=== PATIENT | male | born 1945 | race Caucasian/White ===

== ENCOUNTER 2018-07-24 07:51 | Outpatient (CLI) | payer MEDICARE ==
[2018-07-24] MEDS ORDERED: Gadobenate Dimeglumine 529 MG/1 ML (20ML VIAL) ONE (09:12)
== END 2018-07-24 07:52 | disposition home or self-care (01) ==
LOC: BICMRI 07:51
PROVIDERS: ATTEND Neurological Surgery
DX: M47.22 Other spondylosis with radiculopathy, cervical region (principal); M50.11 Cervical disc disorder with radiculopathy, high cervical region; M89.38 Hypertrophy of bone, other site; Z98.1 Arthrodesis status
CPT/HCPCS: 72156; 82565

== ENCOUNTER 2018-07-24 12:19 | Outpatient (CLI) | payer MEDICARE ==
--- NOTE | 2018-07-24 14:40 | CT ---
NONCONTRAST CT CERVICAL SPINE: 07/24/2018 HISTORY: Neck pain. FINDINGS: There are post surgical changes related to anterior cervical fusion with anterior plate and screws tr ansfixing the C4-C5 and C5-C6 levels. No hardware complication is seen. Intradiskal prostheses are noted at these levels. Multilevel degenerative changes are seen in the cervical spine. No fracture or subluxation is seen. There are prominent anterior osteophytes at the C6-C7 and C7-T1 levels and to a lesser extent at the C3-C4 level. There is posterior osteophyte formation and facet degenerative changes at multiple lev els. At the C2-C3 level, there is moderate to severe left-sided neural foraminal narrowing due to uncinate process hypertrophy and prominent left-sided facet hypertrophic changes. At the C3-C4 level, there is posterior osteophyte formation, uncinate process hypertrophy, and facet degenerative changes, resulting in moderate to severe bilateral neural foraminal narrowing. Posterior to the C4-C5 level, there is prominent osteophyte formation, with the osteophyte formation extending inferiorly at the right aspect of the central spinal canal. This does result in mass effec t on the spinal cord, resulting in flattening of the right anterolateral aspect of the spinal cord. There is also moderate bilateral neural foraminal narrowing. C5-C6: There is posterior osteophyte formation resulting in moderate to severe narrowing of the righ t neural foramen. There is also narrowing of the central spinal canal and mass effect on the anterio r aspect of the spinal cord. There is moderate to severe right-sided neural foraminal narrowing due to bony encroachment. The prominent posterior osteophyte formation, greatest to the right of midline , may also affect the exiting nerve root at this level. The prevertebral soft tissues are within normal limits. The mastoid air cells are clear. The visualized lung apices are clear. IMPRESSION: Multilevel degenerative changes of the cervical spine with prominent posterior osteophyte formation p resent at the level of post surgical changes, as described above. The degree of narrowing is better assessed on magnetic resonance imaging examination on 07/24/2018. There are moderate degrees of neur al foraminal narrowing at multiple levels, also related to bony encroachment, as described above. POS: ANGELA
== END 2018-07-24 12:20 | disposition home or self-care (01) ==
LOC: CT 12:19
PROVIDERS: ATTEND Neurological Surgery
DX: M54.2 Cervicalgia (principal); M47.892 Other spondylosis, cervical region; M99.81 Other biomechanical lesions of cervical region; M25.78 Osteophyte, vertebrae; Z98.890 Other specified postprocedural states
CPT/HCPCS: 72125; 72156; 82565; A9579

== ENCOUNTER 2018-08-20 06:27 | Day surgery (SDC) | payer MEDICARE ==
[2018-08-14 12:25] VITALS: BMI 39.3
--- NOTE | 2018-08-20 00:03 | HP ---
HISTORY OF PRESENT ILLNESS: Mr. Hammer is a pleasant 73-year-old man addressed with previous [facility] es for both neck and low back issues. He returns now with a significant left-sided C4 and partial C5 radicular pattern of pain with a new MRI and CT scan showing multiple levels of both central and sev ere foraminal stenosis particularly from C4 through C6. He has not treated this recently, but in the past has treated with injections, which have helped him, but then it started to taper. His pain is significant to the point where he would like to move forward with surgery if possible. He does drop items with the left hand. PAST MEDICAL HISTORY: Arrhythmia, kidney stones, and gastroesophageal reflux disease. CURRENT MEDICATIONS: Atenolol, Advil, AndroGel, aspirin, fenofibrate, losartan, omeprazole, erythrom ycin. ALLERGIES: No known drug allergies. PHYSICAL EXAMINATION: GENERAL: Patient is alert and oriented x3. Gait is normal. EXTREMITIES: Upper extremity motor exam is normal as well in the bilateral upper extremities. He do es have restricted range of motion to the left in the cervical spine. ASSESSMENT: Cervical radiculopathy. PLAN: Dr. Jean-Baptiste met with the patient, reviewed imaging, and advocated for C4 through C6 posterior ce rvical decompression. He explained to the patient the risks, benefits, and alternatives to the proce dure. The patient expressed understanding and would like to move forward with surgery as discussed. I do believe the patient is mentally competent and capable of making medical decisions for himself. We will move forward with surgery as planned. Aydin Garcia PA-C dictating for Dr. Jean-Baptiste.
[2018-08-20 07:35] LABS: #Basophils 0.1 thou/uL (0.0-0.2); #Eosinphils 0.3 thou/uL (0.0-0.7); #Lymphocytes 1.4 thou/uL (1.20-3.40); #Monocytes 0.6 thou/uL (0.11-0.59); #Neutrophils 3.3 thou/uL (1.40-6.50); %Basophils 1.3 % (0.0-1.0); %Lymphocytes 23.9 % (21.0-51.0); %Monocytes 11.3 % (0.0-10.0); %Neutrophils 58.6 % (42.0-75.0); Hemoglobin 17.1 g/dL (14.0-18.0); Mean Corpuscular HGB CONC 33.6 g/dL (32.0-36.0); Mean Corpuscular Hemoglobin 31.7 pg (27.0-31.0); Mean Corpuscular Volume 94.3 fL (78.0-98.0); Mean Platelet Volume 8.7 fL (7.4-10.4); Platelet Count 204 thou/uL (130-400); RBC Distribution Width 13.3 % (11.5-14.5); White Blood Cell (WBC) Count 5.7 thou/uL (4.8-10.8)
[2018-08-20] MEDS ORDERED: CEFAZOLIN/Water 2 GM/20 ML SYRINGE ONE ×2 (07:38→12:52)
[2018-08-20] MEDS ORDERED: Thrombin 5000 UNITS/5 ML VIAL ONE (09:11)
[2018-08-20] MEDS ORDERED: Bupivacaine HCl 0.5%/Epinephrine 1:200,000/PF 30 ml Vial ONE (09:11)
[2018-08-20] MEDS ORDERED: Tamsulosin HCl 0.4 MG CAP ONE (11:24)
[2018-08-20] MEDS ORDERED: HYDROcodone/Acetaminophen 5/325 mg Tablet ONE (12:52)
[2018-08-20] MEDS ORDERED: Dexamethasone 20 MG/5 ML VIAL ONE (16:29)
[2018-08-20] MEDS ORDERED: Ondansetron HCl/PF 4 MG/2 ML Vial ONE (16:29)
[2018-08-20] MEDS ORDERED: PHENYLEPHRINE-NS 100 MCG/ML 10 ML SYRINGE ONE (16:29)
[2018-08-20] MEDS ORDERED: Glycopyrrolate 0.2 MG/ML 5 ML SYRINGE ONE (16:29)
[2018-08-20] MEDS ORDERED: PROPOFOL 200 MG/20 ML VIAL ONE (16:29)
[2018-08-20] MEDS ORDERED: ePHEDrine/0.9% NaCl/PF SYRINGE 50 mg/10 ml ONE (16:29)
--- NOTE | 2018-08-21 09:25 | OP ---
DATE OF PROCEDURE: 08/20/2018 SURGEON: Harmeet Jean-Baptiste M.D. COLD PRESS OPERATOR: Aydin Garcia PA-C. INDICATION: Prevent neurologic decline. DIAGNOSIS: Cervical spondylytic stenosis with myelopathy. PROCEDURE: Posterior cervical decompression C4-C6. ANESTHESIA: General. TECHNIQUE: The patient was brought into the operating room and placed under anesthesia. He was flip ped from a supine to a prone position on the operating room table. A linear incision was planned ove r the posterior cervical elements spanning C4-C6. After prepping and draping and after an appropriat e operative pause, the incision was created. The soft tissues were swept away from midline. Self-re taining retractors were placed in the wound for optimal exposure. After confirming the appropriate l evel with C-arm fluoroscopy, an Adson rongeur as well as 2 and 1 mm Kerrisons were used to perform a laminectomy spanning C4-C6. After decompressing these segments, the wound was irrigated. Hemostasis was maintained throughout. The wound was then closed in anatomic layers and a pressure dressing was applied. There were no known procedural complications.
--- NOTE | 2018-08-21 09:35 | EKG ---
Test Reason : PREOP Blood Pressure : / mmHG Vent. Rate : 073 BPM Atrial Rate : 073 BPM P-R Int : 182 ms QRS Dur : 104 ms QT Int : 362 ms P-R-T Axes : 074 025 088 degrees QTc Int : 398 ms Normal sinus rhythm Normal ECG When compared with ECG of 19-FEB-2017 12:55, No significant change was found Confirmed by EKTA HOGUE ([id number]) on 08/21/2018 9:34:56 AM Referred By: Ivette MULLINS Confirmed By:EKTA HOGUE
== END 2018-08-20 13:50 | disposition home or self-care (01) ==
LOC: SDC 06:27
PROVIDERS: ATTEND Neurological Surgery
PROC: 00NW0ZZ Release Cervical Spinal Cord, Open Approach (ICD-10-PCS; principal; 2018-08-20)
DX: M47.12 Other spondylosis with myelopathy, cervical region (principal); M47.22 Other spondylosis with radiculopathy, cervical region; M48.02 Spinal stenosis, cervical region; I12.9 Hypertensive chronic kidney disease with stage 1 through stage 4 chronic kidney disease, or unspecified chronic kidney disease; E11.22 Type 2 diabetes mellitus with diabetic chronic kidney disease; N18.2 Chronic kidney disease, stage 2 (mild); K21.9 Gastro-esophageal reflux disease without esophagitis; G47.33 Obstructive sleep apnea (adult) (pediatric); N40.0 Benign prostatic hyperplasia without lower urinary tract symptoms; N52.9 Male erectile dysfunction, unspecified; Z79.82 Long term (current) use of aspirin; Z79.84 Long term (current) use of oral hypoglycemic drugs; Z79.899 Other long term (current) drug therapy
CPT/HCPCS: 76001; 85025; 93005; 93010; J0670; J1100; J2405; J2704

== ENCOUNTER 2018-09-16 02:07 | Inpatient (IN) | payer MEDICARE ==
[2018-09-16 03:41] LABS: Troponin I 1.065 ng/mL (< 0.028)
[2018-09-16 04:36] VITALS: BMI 38.0
[2018-09-16] MEDS ORDERED: Dextrose 5% in Water 1,000 ML IV PRN (04:38)
[2018-09-16] MEDS ORDERED: HYDROcodone/Acetaminophen 5/325 mg Tablet PO PRN (04:38)
[2018-09-16] MEDS ORDERED: HumaLOG 300 UNITS/3 ML VIAL SC PRN ×2 (04:38)
[2018-09-16] MEDS ORDERED: Bisacodyl 5 MG TAB PO PRN (04:38)
[2018-09-16] MEDS ORDERED: Senokot S 8.6-50 MG TAB PO PRN (04:38)
[2018-09-16] MEDS ORDERED: Dextrose 50% Abboject 50 ML SYRINGE SLOW IVP PRN (04:38)
[2018-09-16] MEDS ORDERED: Ondansetron PF 4 MG/2 ML Vial IVP PRN (04:38)
[2018-09-16] MEDS ORDERED: Nitroglycerin 0.4 MG TAB (25 Tab Bottle) SL PRN (04:42)
[2018-09-16] MEDS ORDERED: cloNIDine 0.1 MG TAB PO PRN (04:42)
[2018-09-16] MEDS ORDERED: Acetaminophen 500 MG TAB PO PRN (04:42)
[2018-09-16] MEDS ORDERED: Diabetic Tussin 200 MG/10 ML UDCUP PO PRN (04:42)
[2018-09-16] MEDS ORDERED: Benzonatate 100 MG CAP PO PRN (04:42)
[2018-09-16] MEDS ORDERED: hydrALAZINE 20 MG/ML VIAL SLOW IVP PRN (04:42)
[2018-09-16] MEDS ORDERED: Sodium Chloride 0.65% Nasal 44 ML BOT EA NARE PRN (04:42)
[2018-09-16] MEDS ORDERED: Polyethylene Glycol 3350 17 GM Packet PO PRN (05:49)
--- NOTE | 2018-09-16 06:10 | HP ---
DATE OF ADMISSION: 09/16/2018 CHIEF COMPLAINT: Shortness of breath. PRIMARY CARE PHYSICIAN: Joao Hicks M.D. in [place]. HISTORY OF PRESENTING ILLNESS: Mr. Hammer is a very pleasant 73-year-old male with past medical hist ory of atrial fibrillation, status post ablation multiple years ago as well as history of dyslipidemi a, diabetes and hypertension, who presented to [place] emergency room with the above-mentioned c omplaint. History is mainly obtained by the patient himself and supplemented by his present in the room. According to Mr. Hammer, he has been feeling poorly for the last few days. He has been having some s hortness of breath and easy fatigue for the last 2 or 3 days. He recently had a cervical laminectomy about 2 or 3 weeks ago by neurosurgeon, Dr. Jean-Baptiste. He was discharged the very next day and has been very active and working with the rehabilitation. The date of procedure was 08/20/2018. He, however , did notice some right-sided leg pain, which he attributes to his chronic sciatica versus bursitis. He was sitting in the bathtub today to help relieve this right leg pain when his tried to get hi m out and he passed out. He was approximately passed out for 1 minute and the called the EMS an d by that time, he was coming around with some babbling speech. He was found to be hypoxic per the EMS and was brought into the ER in [place] on nonrebreather m ask. At that time, he was 93% saturation and blood pressure 107/82. His initial workup included jonny st x-ray and 12-lead EKG. These were rather unimpressive. He was found to have elevated D-dimer mor e than 4, so he underwent a CT angio. The formal report is pending at this time, but according to th e ER physician, it was consistent with saddle pulmonary embolism. He was transferred to our emergenc y room where he was continued on nonrebreather for persistent hypoxia. He was difficult to wean off the nonrebreather and is now being admitted to CCU for the saddle PE and acute hypoxic respiratory fa ilure, likely secondary to the PE. PAST MEDICAL HISTORY: 1. Cardiac arrhythmia, status post ablation in [place] times at least twice. At some point of time, he was on Xarelto, but it was stopped after successful ablation multiple years ago. He denies any re occurrence. 2. History of kidney stone. 3. GERD. 4. Diabetes mellitus type 2. 5. Hypertension. 6. Dyslipidemia. PAST SURGICAL HISTORY: 1. History of cardiac ablation. 2. Right foot surgery. 3. Back surgery x3. 4. Left thumb surgery. 5. Cataract removal. 6. Cervical spinal fusion, 08/2018. 7. Tonsillectomy. PSYCHIATRIC HISTORY: No anxiety, no depression. SOCIAL HISTORY: He drinks socially twice a month. No history of drug, tobacco or alcohol abuse. FAMILY HISTORY: No significant family history of bleeding or clotting disorder. Both of his parents had stroke. His mother is still alive and healthy in her 90s. ALLERGIES: No known medication allergies. CURRENT MEDICATIONS: Atenolol 50 mg daily, losartan 100 mg daily, fenofibric acid 145 mg daily, Dexi lant 60 mg daily, metformin 500 b.i.d., glimepiride 4 mg daily, Lyrica 75 b.i.d., AndroGel 50 mg once a day, aspirin 81 mg daily, [place] p.r.n. CODE STATUS: Full code. Discussed with the patient. REVIEW OF SYSTEMS: A 12-point review of systems was done. It is negative except for those mentioned in the history and physical. LABORATORY DATA: CBC is unremarkable. D-dimer elevated to more than 4. Serum chemistries show chlo ride of 108, bicarbonate 18, BUN 31, creatinine 1.69 with a baseline creatinine of normal. His CK-MB is elevated to 11 and troponin initially 0.042 with repeat troponin of 1.065. BNP normal at 79. IMAGING: CT scan of the brain by my review is negative for any bleeding, mass or acute process. Jonny st x-ray by my review has no evidence to suggest pleural effusion, edema or infiltrate. CT angio per report shows saddle PE. A 12-lead EKG by my review shows normal sinus rhythm at 90 beats per minute with inverted T waves in lead V2 and lead third. PHYSICAL EXAMINATION: VITAL SIGNS: Most recent vital signs, temperature 98.6, pulse 86, respirations 17, satting 100% on 1 5 liters nonrebreather, blood pressure 117/81. GENERAL: No acute distress, awake, alert, oriented x3. No accessory muscle use. Able to converse i n full sentences, on the nonrebreather. HEENT: Mucous membrane is moist and pink. No oropharyngeal exudate or erythema. Head is normocepha lic, atraumatic. Pupils are equal and reactive to light and accommodation. Extraocular movements in tact. NECK: Supple without any lymphadenopathy, JVD or bruit. CHEST: Clear to auscultation with few bibasilar crackles. No wheezing. CARDIOVASCULAR: Rate and rhythm is regular without any murmur, rubs or gallops. ABDOMEN: Soft, nontender, nondistended with positive bowel sounds. EXTREMITIES: Free of any cyanosis, clubbing or edema. NEUROLOGIC: Nonfocal. SKIN: Free of any rashes or bruises. Feel warm and dry to touch. PSYCHIATRIC: Normal affect. IMPRESSION AND PLAN: 1. Syncope. This is secondary to pulmonary embolism. We will obtain a transthoracic echocardiogram as his cardiac enzymes are also elevated. No electrolyte imbalances. We will check orthostatics to rule out alternative causes as well. 2. Acute hypoxic respiratory failure. This is secondary to saddle pulmonary embolism. Continue non rebreather for now and wean as tolerated. Symptomatic and supportive care. We will request consulta tion with Pulmonary Medicine in the morning and get a transthoracic echocardiogram to rule out right ventricular strain. 3. Saddle pulmonary embolism. He has received first dose of Lovenox at 1 mg/kg in the ER. We will continue the same at b.i.d. dosing. The patient reports that he has been on Xarelto many years ago f or his atrial fibrillation and he would be a good candidate for newer oral anticoagulants for dischar ge. 4. Elevated troponin, likely demand ischemia from the pulmonary embolism. We will get a transthorac ic echocardiogram and continue the b.i.d. Lovenox dosing and restart his baby aspirin. Echo has been ordered as above. 5. History of hypertension, currently well controlled. We will monitor and use p.r.n. antihypertens denita. 6. Dyslipidemia. 7. History of diabetes mellitus. We will put him on insulin sliding scale for now with frequent Acc u-Cheks. 8. Acute renal insufficiency. We will hold his GONZALES inhibitor and diuretics for now and avoid any ne phrotoxic medications. 9. Code status: Full code. Discussed with the patient. 10. Add deep venous thrombosis and gastrointestinal prophylaxis and p.r.n. medication orders. DISPOSITION: Mr. Hammer is currently being admitted to the hospital for saddle pulmonary embolism. Estimated length of stay at this time is at least 2-3 midnights. Further management will depend upon his clinical course.
[2018-09-16 06:19] LABS: Troponin I 1.221 ng/mL (< 0.028)
[2018-09-16] MEDS ORDERED: Glimepiride 4 MG TAB PO SCH (09:00)
[2018-09-16] MEDS ORDERED: Testosterone 1% 5 GM PK TOP SCH (09:00)
[2018-09-16] MEDS ORDERED: Enoxaparin Sodium 30 MG/0.3 ML SYRINGE SC SCH (09:00)
[2018-09-16] MEDS ORDERED: Enoxaparin Sodium 100 MG/ML SYRINGE SC SCH (09:00)
[2018-09-16] MEDS: Cyanocobalamin (Vitamin B-12) 1,000 MCG TAB PO SCH (09:39)
[2018-09-16] MEDS: Multivitamin W/ Minerals 1 TAB PO SCH (09:39)
[2018-09-16] MEDS: Aspirin 81 mg Enteric Coated Tablet PO SCH (09:39)
[2018-09-16] MEDS: Fenofibrate Nanocrystallized 145 MG TAB PO SCH (09:40)
--- NOTE | 2018-09-16 10:03 | ULT ---
BILATERAL LOWER EXTREMITY VENOUS DOPPLER: Date: 09/16/18 HISTORY: Pulmonary embolism. COMPARISON: Doppler exam from 2017. FINDINGS: Real-time Beckett scale and color Doppler with spectral analysis of the bilateral lower extremity venous system was performed. Common femoral, femoral, proximal portions of greater saphenous and deep femor al veins, as well as the popliteal and posterior tibial veins were interrogated. There is thrombosis of the right femoral, popliteal, and posterior tibial veins, as well as the left femoral, popliteal, and posterior tibial veins. These are partially occlusive. IMPRESSION: Partially occlusive thrombi both lower extremities. Nurse notified of findings via the technologist at the time of exam. CODE CR. POS: [facility]
[2018-09-16] MEDS: Atenolol 50 MG TAB PO SCH (11:00)
[2018-09-16] MEDS: Glimepiride 1 MG TAB PO SCH (14:01)
--- NOTE | 2018-09-16 14:31 | CON ---
DATE OF CONSULTATION: 09/16/2018 SERVICE: Pulmonary Medicine. REASON FOR CONSULTATION: PE. HISTORY OF PRESENT ILLNESS: The patient is a 73-year-old white male with past medical history significant for recent laminectomy. He was in his usual state of health until he started having leg discomfort that turned into shortness of breath. He was brought to the Emergency Department where initial evaluation demonstrated very large pulmonary embolism with massive clot burden. He actually came into the hospital with a syncopal event. He did not strike his head. That being said, he did scrape his cheek on the counter on the way down. Prior to this event, he had no specific complaints. PAST MEDICAL HISTORY: 1. History of atrial fibrillation, status post ablation. 2. Gastroesophageal reflux disease. 3. Type 2 diabetes mellitus. 4. Hypertension. 5. Dyslipidemia. 6. PE/DVT, new diagnosis. 7. History of nephrolithiasis. PAST SURGICAL HISTORY: 1. Cardiac ablation. 2. Right foot surgery. 3. Back surgery x3. 4. Left thumb surgery. 5. Cataract extraction. 6. Spinal fusion in 08/2018. 7. Tonsillectomy. SOCIAL HISTORY: He drinks wine socially. He denies any alcohol or illicit drug use. He has no exposure to chemicals, dust asbestos or tuberculosis. FAMILY HISTORY: Noncontributory. ALLERGIES: No known drug allergies. MEDICATIONS: List of inpatient medications was reviewed. Couple of small updates was made. REVIEW OF SYSTEMS: General, head, ears, eyes, nose, throat, cardiovascular, respiratory, GI, , musculoskeletal, neurologic and skin is negative except mentioned in the HPI. PHYSICAL EXAMINATION: VITAL SIGNS: Afebrile, pulse 82, blood pressure 105/73, respirations 23, saturation 100% on nonrebreather. GENERAL: The patient is awake and alert. He is tachypneic. He has no accessory muscle use. HEENT: Normocephalic, atraumatic. Sclerae are white, conjunctivae pink. Oral mucosa is moist without lesions. LUNGS: Excellent air entry. No wheezing, rhonchi, or crackles are appreciated. HEART: Normal rate, regular. ABDOMEN: Soft, nontender, nondistended. Bowel sounds are positive. MUSCULOSKELETAL: No cyanosis or clubbing. There is a little asymmetry. NEUROLOGIC: Grossly nonfocal. LABORATORY: WBC 7.4, hemoglobin 16.5, platelets 134,000. D-dimer is greater than 4. Troponin 1.22 and up trending, BNP 79, lactate 2.0, glucose 179. Creatinine 1.69, which is above baseline. Basic metabolic profile is otherwise unremarkable. CK is elevated at 452. IMAGIN. Chest x-ray demonstrates no acute cardiopulmonary abnormality. 2. CT of the brain demonstrates no acute intracranial abnormality. 3. CTA of the chest demonstrates no acute lung issues other than a very large pulmonary embolus. This is a saddle embolus with large clot burden in the right upper, middle and lower lobe segments, as well as the left upper and lower segments. He has a contrast refluxing into the inferior vena cava. The left ventricle is compressed by the enlarged right ventricle and the right atrium is severely dilated. The left atrium appears to be underfilled. 4. Ultrasound of bilateral lower extremities demonstrates extensive clot burden , the bilateral femoral veins are involved. ASSESSMENT: 1. Syncope, secondary to pulmonary embolism. 2. Submassive pulmonary embolism. 3. Non-ST elevation myocardial, secondary to a large clot burden. 4. Right ventricular heart strain, very severe. DISCUSSION AND PLAN: I talked to the patient about administration of TPA. He had a surgical procedure roughly 4 weeks ago. As such, He is ever so slightly outside of the absolute contraindication window. We talked about the major risks including bleeding around the neck which could result in paralysis of the upper and lower extremities. I talked to Dr. Jean-Baptiste, who performed the procedure. At this point, he suggesting the likelihood of a major bleeding complication would be quite low. The patient understands that we can deal with most bleeding issues, but if he bleeds around the brain, in the brain or around the spinal cord that he could suffer a severe/catastrophic neurologic injury that he may not recover from. That being said, if he does well with the TPA, he also understands that he is more likely to do well long-term. As such, we are going to proceed with TPA, which will be administered 12 hours after his last dose of Lovenox was administered. We will look very closely for neurologic complications. Pulmonary Critical Care will continue to follow along and will certainly remain in the hospital 24 hours post-TPA. 70 minutes have been devoted to this patient in various activities. I personally reviewed all imaging studies and laboratory data noted within this document. For fifty percent of this time, I was interacting with the patient at the bedside or coordinating care with the care team. For the remainder of the time I was immediately available to the patient in the hospital unit. ANNELISE
[2018-09-16] MEDS: Melatonin 3 MG TAB PO SCH (21:13)
[2018-09-17] MEDS: Acetaminophen 325 MG TAB PO PRN ×2 (00:18→17:24)
[2018-09-17 04:28] LABS: #Basophils 0.1 thou/uL (0.0-0.2); #Eosinphils 0.3 thou/uL (0.0-0.7); #Lymphocytes 1.5 thou/uL (1.20-3.40); #Monocytes 0.4 thou/uL (0.11-0.59); #Neutrophils 2.8 thou/uL (1.40-6.50); %Basophils 1.3 % (0.0-1.0); %Eosinophils 6.3 % (0.0-10.0); %Monocytes 8.3 % (0.0-10.0); Hemoglobin 14.4 g/dL (14.0-18.0); Mean Corpuscular HGB CONC 32.3 g/dL (32.0-36.0); Mean Corpuscular Volume 95.7 fL (78.0-98.0); Mean Platelet Volume 8.6 fL (7.4-10.4); Platelet Count 124 thou/uL (130-400); RBC Distribution Width 13.6 % (11.5-14.5); Red Blood Cell (RBC) Count 4.67 mill/uL (4.70-6.10)
[2018-09-17 04:51] LABS: ALT (SGPT) 29 U/L (8-55); AST (SGOT) 24 U/L (5-34); Albumin 3.6 g/dL (3.4-4.8); Alkaline Phosphatase 38 U/L (40-150); Anion Gap 12 mmol/L (10-20); BUN (Urea Nitrogen) 20 mg/dL (8.4-25.7); Bilirubin, Total 0.7 mg/dL (0.2-1.2); Calc. Creatinine Clearance 103 mL/min (70-130); Calcium 8.7 mg/dL (7.8-10.44); Carbon Dioxide 23 mmol/L (23-31); Chloride 108 mmol/L (98-107); Estimated GFR-MDRD 61; Globulin 2.5 g/dL (2.4-3.5); Glucose 124 mg/dL (83-110); Magnesium 1.9 mg/dL (1.6-2.6); Potassium 4.2 mmol/L (3.5-5.1); Protein, Total 6.1 g/dL (5.8-8.1); Sodium 139 mmol/L (136-145)
[2018-09-17 04:56] LABS: Critical Call Chem Troponin I RESULT DECREASING
[2018-09-17] MEDS: Enoxaparin Sodium 100 MG/ML SYRINGE SC SCH ×3 (06:24→20:54)
[2018-09-17] MEDS: Atenolol 50 MG TAB PO SCH (09:07)
[2018-09-17] MEDS: Multivitamin W/ Minerals 1 TAB PO SCH (09:08)
[2018-09-17] MEDS: Aspirin 81 mg Enteric Coated Tablet PO SCH (09:08)
[2018-09-17] MEDS: Fenofibrate Nanocrystallized 145 MG TAB PO SCH (09:13)
[2018-09-17] MEDS: Cyanocobalamin (Vitamin B-12) 1,000 MCG TAB PO SCH (09:13)
[2018-09-17] MEDS: Glimepiride 1 MG TAB PO SCH (09:14)
[2018-09-17] MEDS ORDERED: Enoxaparin Sodium 30 MG/0.3 ML SYRINGE SC SCH (10:45)
--- NOTE | 2018-09-17 14:15 | PRG ---
DATE OF SERVICE: 09/17/2018 SERVICE: Pulmonary Medicine INTERVAL HISTORY: The patient is doing great from a respiratory standpoint. He has no and chest dis comfort, nausea, vomiting, fevers or chills. Otherwise, there has been no interval change to his con dition. PHYSICAL EXAMINATION: VITAL SIGNS: Afebrile. Pulse 83, blood pressure 120/75, respirations 34, saturation 97% on 2 liters nasal cannula. GENERAL: The patient is awake, alert, in no apparent distress. LUNGS: Excellent air entry. There is no prolonged expiratory phase or wheezing appreciated. HEART: Normal rate, regular. ABDOMEN: Soft, nontender, nondistended. Bowel sounds are positive. MUSCULOSKELETAL: No cyanosis or clubbing. No pitting in the bilateral lower extremities. NEUROLOGIC: Grossly nonfocal. LABORATORY DATA: WBC 5.0, hemoglobin 14.4, platelets 124,000. Basic metabolic profile, liver functi on studies are unremarkable. Creatinine 1.17 and improved dramatically. Troponin has much improved to 0.33, and BNP is 205. That rise was anticipated. IMAGING: Echocardiogram from yesterday demonstrated normal ejection fraction. Right atrium, and rig ht ventricle were very enlarged. There was moderate to severe tricuspid regurgitation, and right soy tricular failure consistent with cor pulmonale. Moderately elevated pulmonary artery pressures were identified. ASSESSMENT: 1. Acute hypoxic respiratory failure. 2. Syncope secondary to pulmonary embolism. 3. Acute pulmonary embolism and extensive bilateral deep venous thromboses involving both common fem oral veins. 4. Non-ST elevation myocardial infarction secondary to large clot burden. 5. Right ventricular heart strain, severe, but resolved. DISCUSSION AND PLAN: I will repeat a BNP tomorrow morning. The troponin is already trending downwar d. My suspicion is that the patient has had a significant reduction in clot burden already. We will see if we can wean him down to room air. We will start to mobilize him. From my perspective, he is stable for transition to the telemetry unit. He likely has persistent clot burden in the lower extr emities. If he has another syncopal event, I would repeat the dose of t-PA and consider transitionin to [place]. That being said, it seems that the stress on his heart is off. We will repeat a BNP t omorrow morning to confirm that. By then it should be dropping. I will give him a daily dose of Tod nase per his request.
[2018-09-17] MEDS: Enoxaparin Sodium 30 MG/0.3 ML SYRINGE SC SCH (20:53)
[2018-09-17] MEDS: Melatonin 3 MG TAB PO SCH (20:53)
--- NOTE | 2018-09-17 23:38 | PDOC.PN ---
- Subjective Encounter Start Date: 09/17/18 Encounter Start Time: 11:30 Patient seen and examined for PE/DVT. No new complaints. No overnight events - Objective Resuscitation Status: Resuscitation Status FULL:Full Resuscitation MAR Reviewed: Yes Vital Signs & Weight: Vital Signs (12 hours) Temp Pulse Ox 09/17/18 20:00 99.5 F 98 09/17/18 16:00 99.4 F 09/17/18 12:00 98.5 F Weight Admit Weight 280 lb Weight 280 lb 6.848 oz Most Recent Monitor Data Heart Rate from ECG 69 NIBP 139/60 NIBP BP-Mean 86 Respiration from ECG 14 SpO2 94 I&O: 09/16/18 09/17/18 09/18/18 06:59 06:59 06:59 Intake Total 0 1184 840 Output Total 575 8135 1340 [facility] -881 -500 Result Diagrams: 09/17/18 03:36 09/17/18 03:36 Additional Labs: Accuchecks 09/17/18 09/17/18 09/17/18 22:20 16:31 11:45 POC Glucose 142 H 98 179 H 09/17/18 01:57 POC Glucose 118 H EKG Reviewed by me: Yes (Tele SR) Phys Exam - Physical Examination Constitutional: NAD Respiratory: no wheezing, no rhonchi Cardiovascular: RRR, no rub Gastrointestinal: soft, non-tender, positive bowel sounds Musculoskeletal: no edema Neurological: moves all 4 limbs Dx/Plan - Plan 1. Acute hypoxic resp failure due to PE/DVT with RV strain s/p TPA 2. HTN 3. HLD 4. DM2 5. Elevated troponins due to demand ischemia / CKD 2 PLAN: Cont Lovenox Cont Atenolol/Glimepiride AM labs Cont current meds as below Review of Systems - Review of Systems Cardiovascular: negative: chest pain, palpitations, orthopnea, paroxysmal nocturnal dyspnea, edema, light headedness, other Gastrointestinal: negative: Nausea, Vomiting, Abdominal Pain, Diarrhea, Constipation, Melena, Hematochezia, Other - Medications/Allergies Allergies/Adverse Reactions: Allergies Allergy/AdvReac Type Severity Reaction Status Date / Time No Known Allergies Allergy Verified 08/14/18 12:25 Medications: Current Medications Acetaminophen (Tylenol) 650 mg PO Q4H PRN PRN Reason: Headache/Fever/Mild Pain (1-3) Last Admin: 09/17/18 17:24 Dose: 650 mg Hydrocodone Bitart/Acetaminophen ([place] 5/325) 1 tab PO Q4H PRN PRN Reason: Moderate Pain (4-6) Aspirin (Ecotrin) 81 mg PO DAILY [facility] Last Admin: 09/17/18 09:08 Dose: 81 mg Atenolol (Tenormin) 50 mg PO DAILY [facility] Last Admin: 09/17/18 09:07 Dose: 50 mg Benzonatate (Tessalon) 100 mg PO Q6H PRN PRN Reason: Cough Bisacodyl (Dulcolax) 10 mg PO DAILYPRN PRN PRN Reason: Constipation Cholecalciferol (Vitamin D3) 1,000 units PO DAILY [facility] Last Admin: 09/17/18 09:13 Dose: 1,000 units Clonidine (Catapres) 0.1 mg PO Q4H PRN PRN Reason: SBP GREATER THAN 160 Cyanocobalamin (Vitamin B-12) 1,000 mcg PO DAILY [facility] Last Admin: 09/17/18 09:13 Dose: 1,000 mcg Dextrose/Water (Dextrose 50%) 25 gm SLOW IVP PRN PRN PRN Reason: Hypoglycemia Enoxaparin Sodium (Lovenox) 100 mg SC BID [facility] Last Admin: 09/17/18 20:54 Dose: 100 mg Enoxaparin Sodium (Lovenox) 30 mg SC BID [facility] Last Admin: 09/17/18 20:53 Dose: 30 mg Fenofibrate (Tricor) 145 mg PO DAILY [facility] Last Admin: 09/17/18 09:13 Dose: 145 mg Fluticasone Propionate (Flonase Nasal [place]) 0 gm NASAL DAILY [facility] Glimepiride (Amaryl) 1 mg PO QAM-[facility] Last Admin: 09/17/18 09:14 Dose: 1 mg Glucagon (Glucagon) 1 mg IM PRN PRN PRN Reason: Hypoglycemia Guaifenesin (Robitussin Sf) 200 mg PO Q4H PRN PRN Reason: Cough Hydralazine HCl (Apresoline) 10 mg SLOW IVP Q4H PRN PRN Reason: SBP > 180 and HR < 70 Dextrose/Water (D5w) 1,000 mls @ 0 mls/hr IV .Q0M PRN PRN Reason: Hypoglycemia Insulin Human Lispro (Humalog) 0 units SC .MODERATE SLIDING SC PRN PRN Reason: Moderate Correctional Scale Last Admin: 09/17/18 12:03 Dose: 2 unit Insulin Human Lispro (Humalog) 0 units SC .BEDTIME SLIDING SC PRN PRN Reason: Bedtime Correctional Scale Iron/Minerals/Multivitamins (Theragran M) 1 tab PO DAILY [facility] Last Admin: 09/17/18 09:08 Dose: 1 tab Melatonin (Melatonin) 6 mg PO HS [facility] Last Admin: 09/17/18 20:53 Dose: 6 mg Nitroglycerin (Nitrostat) 0.4 mg SL Q5MIN PRN PRN Reason: Chest Pain Ondansetron HCl (Zofran) 4 mg IVP Q6H PRN PRN Reason: Nausea/Vomiting Pantoprazole Sodium (Protonix) 40 mg PO DAILY [facility] Last Admin: 09/17/18 09:08 Dose: 40 mg Polyethylene Glycol (Miralax) 17 gm PO PRN PRN PRN Reason: Constipation Senna/Docusate Sodium (Senokot S) 2 tab PO BID PRN PRN Reason: Constipation Sodium Chloride (Flush - Normal Saline) 10 ml IVF PRN PRN PRN Reason: Saline Flush Sodium Chloride ([place] Nasal [place] 0.65%) 0 ml EA NARE QIDPRN PRN PRN Reason: Nasal Congestion
[2018-09-18 05:19] LABS: #Basophils 0.1 thou/uL (0.0-0.2); #Eosinphils 0.3 thou/uL (0.0-0.7); #Lymphocytes 1.6 thou/uL (1.20-3.40); #Monocytes 0.5 thou/uL (0.11-0.59); #Neutrophils 2.1 thou/uL (1.40-6.50); %Basophils 1.1 % (0.0-1.0); %Eosinophils 7.3 % (0.0-10.0); %Lymphocytes 34.9 % (21.0-51.0); %Monocytes 11.4 % (0.0-10.0); %Neutrophils 45.2 % (42.0-75.0); Hemoglobin 14.8 g/dL (14.0-18.0); Mean Corpuscular HGB CONC 32.8 g/dL (32.0-36.0); Mean Corpuscular Hemoglobin 31.1 pg (27.0-31.0); Mean Corpuscular Volume 94.7 fL (78.0-98.0); Mean Platelet Volume 8.6 fL (7.4-10.4); Platelet Count 142 thou/uL (130-400); RBC Distribution Width 13.5 % (11.5-14.5); Red Blood Cell (RBC) Count 4.75 mill/uL (4.70-6.10); White Blood Cell (WBC) Count 4.7 thou/uL (4.8-10.8)
[2018-09-18 05:36] LABS: Anion Gap 12 mmol/L (10-20); BUN (Urea Nitrogen) 18 mg/dL (8.4-25.7); Calc. Creatinine Clearance 96 mL/min (70-130); Calcium 8.8 mg/dL (7.8-10.44); Carbon Dioxide 24 mmol/L (23-31); Chloride 106 mmol/L (98-107); Estimated GFR-MDRD 57; Glucose 128 mg/dL (83-110); Sodium 138 mmol/L (136-145)
[2018-09-18] MEDS: Enoxaparin Sodium 30 MG/0.3 ML SYRINGE SC SCH (08:30)
[2018-09-18] MEDS: Fenofibrate Nanocrystallized 145 MG TAB PO SCH (08:30)
[2018-09-18] MEDS: Enoxaparin Sodium 100 MG/ML SYRINGE SC SCH (08:30)
[2018-09-18] MEDS: Multivitamin W/ Minerals 1 TAB PO SCH (08:30)
[2018-09-18] MEDS: Cyanocobalamin (Vitamin B-12) 1,000 MCG TAB PO SCH (08:30)
[2018-09-18] MEDS: Glimepiride 1 MG TAB PO SCH (08:30)
[2018-09-18] MEDS: Atenolol 50 MG TAB PO SCH (08:31)
[2018-09-18] MEDS: Aspirin 81 mg Enteric Coated Tablet PO SCH (08:31)
[2018-09-18] MEDS: Fluticasone Propionate Nasal Spray 16 gm Bottle NASAL SCH (08:36)
--- NOTE | 2018-09-18 13:31 | PQF ---
CLINICAL DOCUMENTATION IMPROVEMENT CLARIFICATION FORM: ICD-10 Updated PLEASE DO AN ADDENDUM TO THE PROGRESS NOTE WITH ANY DOCUMENTATION UPDATES OR ADDITIONS AND CARRY THROUGH TO DC SUMMARY. THANK YOU. DATE: 09/18 ATTN: DR. MICHELLE NAJERA Please exercise your independent, professional judgment in responding to the clarification form. Clinical indicators are provided on the bottom of this form for your review. Please check appropriate box(s): [ ] Acute Cor Pulmonale [ ] Chronic Cor Pulmonale [ ] Acute on Chronic Cor Pulmonale [ ] Other diagnosis [ ] Unable to determine For continuity of documentation, please document condition throughout progress notes and discharge summary. Thank You. CLINICAL INDICATORS - SIGNS / SYMPTOMS / LABS ECHO 09/16: FINDINGS: SEVERELY ENLARGED R VENTRICLE CAVITY; R VENTRICLE CONSISTENT WITH COR PULMONALE PULMONOLOGY CONSULT 09/16: IMAGIN) CTA OF CHEST DEMONSTRATES A VERY LARGE PULMONARY EMBOLUS. ...THE L VENTRICLE IS COMPRESSED BY THE ENLARGED R VENTRICLE & THE R ATRIUM IS SEVERELY DILATED. ASSESSMENT: 4) R VENTRICULAR HEART STRAIN, VERY SEVERE PULMONOLOGY PN 09/17: IMAGING: ECHO...R VENTRICULAR FAILURE CONSISTENT WITH COR PULMONALE; ASSESSMENT: 5) R VENTRICULAR HEART STRAIN, SEVERE, BUT RESOLVED PN 09/17 (REINALDO): DX/PLAN: 1)...DVT W/ RV STRAIN S/P TPA RISKS: SUBMASSIVE SADDLE PULMONARY EMBOLISM B LE DVT R VENTRICULAR HEART STRAIN, SEVERE TREATMENTS: TPA (09/16) LOVENOX SQ (09/17 - PRESENT) THANK YOU! Allie (This form is maintained as a part of the permanent medical record) 2014 [employer]. All Rights Reserved Allie Santana RN, BSN [email or web address] Office: [phone] [facility]ENTER[facility]
--- NOTE | 2018-09-18 13:41 | PQF ---
CLINICAL DOCUMENTATION IMPROVEMENT CLARIFICATION FORM: ICD-10 Updated PLEASE DO AN ADDENDUM TO THE PROGRESS NOTE WITH ANY DOCUMENTATION UPDATES OR ADDITIONS AND CARRY THROUGH TO DC SUMMARY. THANK YOU. DATE: 09/18 ATTN: DR. MICHELLE NAJERA Please exercise your independent, professional judgment in responding to the clarification form. Clinical indicators are provided on the bottom of this form for your review. Please check appropriate box(s): [ ] NSTEMI [ ] Type II MS [ ] Other diagnosis [ ] Unable to determine CLINICAL INDICATORS - SIGNS / SYMPTOMS / LABS TROP I: 1.065, 1.221, 0.330 (09/16 - ) H&P DOCUMENTATION (TG) 09/16: ASSESSMENT/PLAN: 4) ELEVATED TROPONIN, LIKELY DEMAND ISCHEMIA FROM THE PE PULMONOLOGY CONSULT 09/16: ASSESSMENT/PLAN: 3: NSTEMI, 2/2 TO A LARGE CLOT BURDEN; 4) R VENTRICULAR HEART STRAIN PULMONOLOGY PN 09/17: ASSESSMENT: 4) NSTEMI 2/2 LARGE CLOT BURDEN; 5) R VENTRICULAR HEART STRAIN, SEVERE, BUT RESOLVED PN 09/17 (REINALDO): DX/PLAN: 5) ELEVATED TROPONINS D/T DEMAND ISCHEMIA RISKS: SUBMASSIVE SADDLE PULMONARY EMBOLISM B LE DVT'S TREATMENTS: TPA (09/16) SQ LOVENOX (09/17 - PRESENT) CCU MONITORING THANK YOU! Allie (This form is maintained as a part of the permanent medical record) 2014 [employer]. All Rights Reserved Allie Santana RN, BSN [email or web address] Office: [phone] [facility]
--- NOTE | 2018-09-18 15:09 | PRG ---
DATE OF SERVICE: 09/18/2018 SERVICE: Pulmonary Medicine. INTERVAL HISTORY: The patient is doing great from a respiratory standpoint. He denies any current chest pain, nausea, vomiting, fevers or chills. Otherwise , there has been no interval change to his condition. He is pretty happy with the progress that he has made. He has been able to get out of bed and sit in a chair. He has been ambulating without difficulty. PHYSICAL EXAMINATION: VITAL SIGNS: Afebrile, pulse 69, blood pressure 123/84, respirations 16, saturation 99% on room air. GENERAL: The patient is awake and alert, in no apparent distress. LUNGS: Excellent air entry. There is no prolonged expiratory phase or wheezing. HEART: Normal rate, regular. ABDOMEN: Soft, nontender, nondistended. Bowel sounds are positive. MUSCULOSKELETAL: No cyanosis or clubbing. There is no pitting in the bilateral lower extremities. NEUROLOGIC: Grossly nonfocal. LABORATORY DATA: WBC 4.7, hemoglobin 14.8, platelets 142,000 and stable. Basic metabolic profile is essentially unremarkable with a creatinine of 1.25. BNP 136. ASSESSMENT: 1. Acute hypoxic respiratory failure, resolved. 2. Syncope secondary to pulmonary embolism. 3. Acute pulmonary embolism, submassive with extensive bilateral deep venous thrombosis involving bilateral common femoral veins. 4. Non-ST elevation myocardial infarction, improving. 5. Right ventricular heart strain, resolved. DISCUSSION AND PLAN: We will convert him over to a direct oral anticoagulant. He previously had good experience with Xarelto and would like to move forward with that medication. We will put him on 15 mg twice daily. After a download of 21 days, he is to deescalate to 20 mg once daily. He will be able to follow up with his primary care physician. Ultimately, he will need 9 months of full dose anticoagulation followed by low dose anticoagulation moving forward. Because of the severity of this event, I am inclined to give him low dose anticoagulation, indefinitely, if we can convince his insurance company that it would be in his best interest. He can be transitioned out of the ICU to the telemetry unit. If by tomorrow morning, he is still doing well, he can be transitioned to home. ANNELISE
[2018-09-18] MEDS: Rivaroxaban 15 MG TAB PO SCH (20:15)
[2018-09-18] MEDS: Melatonin 3 MG TAB PO SCH (20:15)
--- NOTE | 2018-09-18 20:58 | PDOC.PN ---
- Subjective Encounter Start Date: 09/18/18 Encounter Start Time: 13:30 Patient seen and examined for PE/DVT. On room air. No CP/SOB. No new complaints. No overnight events - Objective Resuscitation Status: Resuscitation Status FULL:Full Resuscitation MAR Reviewed: Yes Vital Signs & Weight: Vital Signs (12 hours) Temp Pulse Resp BP Pulse Ox 09/18/18 19:57 98.5 F 72 21 H 139/86 96 09/18/18 19:10 97 09/18/18 19:00 98.5 F 09/18/18 16:00 99.4 F 09/18/18 12:00 98.1 F Weight Admit Weight 280 lb 6.848 oz Weight 280 lb 6.848 oz Most Recent Monitor Data Heart Rate from ECG 69 NIBP 123/84 NIBP BP-Mean 97 Respiration from ECG 16 SpO2 99 I&O: 09/17/18 09/18/18 09/19/18 06:59 06:59 06:59 Intake Total 2754 216 2748 Output Total 9653 6978 1321 [facility]881 -920 -275 Result Diagrams: 09/18/18 04:25 09/18/18 04:25 Additional Labs: Accuchecks 09/18/18 09/18/18 09/18/18 20:15 16:12 11:17 POC Glucose 159 H 106 147 H 09/18/18 09/17/18 05:59 22:20 POC Glucose 127 H 142 H EKG Reviewed by me: Yes (Tele SR) Phys Exam - Physical Examination Constitutional: NAD Respiratory: no wheezing, no rhonchi Cardiovascular: RRR, no rub Gastrointestinal: soft, non-tender Musculoskeletal: no edema Neurological: moves all 4 limbs Dx/Plan - Plan 1. Acute hypoxic resp failure due to PE/DVT with Acute Cor pulmonale s/p TPA 2. HTN 3. HLD 4. DM2 5. Elevated troponins due to demand ischemia (Type II NV )/ CKD 2 PLAN: Xarelto started Cont current meds as below Transfer to Tele DC planning Review of Systems - Review of Systems Respiratory: negative: Cough, Dry, Shortness of Breath, Hemoptysis, SOB with Excertion, Pleuritic Pain, Sputum, Wheezing Cardiovascular: negative: chest pain, palpitations, orthopnea, paroxysmal nocturnal dyspnea, edema, light headedness, other - Medications/Allergies Allergies/Adverse Reactions: Allergies Allergy/AdvReac Type Severity Reaction Status Date / Time No Known Allergies Allergy Verified 08/14/18 12:25 Medications: Current Medications Acetaminophen (Tylenol) 650 mg PO Q4H PRN PRN Reason: Headache/Fever/Mild Pain (1-3) Last Admin: 09/17/18 17:24 Dose: 650 mg Hydrocodone Bitart/Acetaminophen ([place] 5/325) 1 tab PO Q4H PRN PRN Reason: Moderate Pain (4-6) Aspirin (Ecotrin) 81 mg PO DAILY [facility] Last Admin: 09/18/18 08:31 Dose: 81 mg Atenolol (Tenormin) 50 mg PO DAILY [facility] Last Admin: 09/18/18 08:31 Dose: 50 mg Benzonatate (Tessalon) 100 mg PO Q6H PRN PRN Reason: Cough Bisacodyl (Dulcolax) 10 mg PO DAILYPRN PRN PRN Reason: Constipation Cholecalciferol (Vitamin D3) 1,000 units PO DAILY [facility] Last Admin: 09/18/18 08:31 Dose: 1,000 units Clonidine (Catapres) 0.1 mg PO Q4H PRN PRN Reason: SBP GREATER THAN 160 Cyanocobalamin (Vitamin B-12) 1,000 mcg PO DAILY [facility] Last Admin: 09/18/18 08:30 Dose: 1,000 mcg Dextrose/Water (Dextrose 50%) 25 gm SLOW IVP PRN PRN PRN Reason: Hypoglycemia Fenofibrate (Tricor) 145 mg PO DAILY [facility] Last Admin: 09/18/18 08:30 Dose: 145 mg Fluticasone Propionate (Flonase Nasal [place]) 0 gm NASAL DAILY [facility] Last Admin: 09/18/18 08:36 Dose: Not Given Glimepiride (Amaryl) 1 mg PO QA-[facility] Last Admin: 09/18/18 08:30 Dose: 1 mg Glucagon (Glucagon) 1 mg IM PRN PRN PRN Reason: Hypoglycemia Guaifenesin (Robitussin Sf) 200 mg PO Q4H PRN PRN Reason: Cough Hydralazine HCl (Apresoline) 10 mg SLOW IVP Q4H PRN PRN Reason: SBP > 180 and HR < 70 Dextrose/Water (D5w) 1,000 mls @ 0 mls/hr IV .Q0M PRN PRN Reason: Hypoglycemia Insulin Human Lispro (Humalog) 0 units SC .MODERATE SLIDING SC PRN PRN Reason: Moderate Correctional Scale Last Admin: 09/17/18 12:03 Dose: 2 unit Insulin Human Lispro (Humalog) 0 units SC .BEDTIME SLIDING SC PRN PRN Reason: Bedtime Correctional Scale Iron/Minerals/Multivitamins (Theragran M) 1 tab PO DAILY [facility] Last Admin: 09/18/18 08:30 Dose: 1 tab Melatonin (Melatonin) 6 mg PO HS [facility] Last Admin: 09/18/18 20:15 Dose: 6 mg Nitroglycerin (Nitrostat) 0.4 mg SL Q5MIN PRN PRN Reason: Chest Pain Ondansetron HCl (Zofran) 4 mg IVP Q6H PRN PRN Reason: Nausea/Vomiting Pantoprazole Sodium (Protonix) 40 mg PO DAILY [facility] Last Admin: 09/18/18 08:31 Dose: 40 mg Polyethylene Glycol (Miralax) 17 gm PO PRN PRN PRN Reason: Constipation Rivaroxaban (Xarelto) 15 mg PO BID [facility] Last Admin: 09/18/18 20:15 Dose: 15 mg Senna/Docusate Sodium (Senokot S) 2 tab PO BID PRN PRN Reason: Constipation Sodium Chloride (Flush - Normal Saline) 10 ml IVF PRN PRN PRN Reason: Saline Flush Last Admin: 09/18/18 08:31 Dose: 10 ml Sodium Chloride ([place] Nasal [place] 0.65%) 0 ml EA NARE QIDPRN PRN PRN Reason: Nasal Congestion
[2018-09-19 07:27] VITALS: TEMP 98.3
[2018-09-19] MEDS: Cyanocobalamin (Vitamin B-12) 1,000 MCG TAB PO SCH (08:12)
[2018-09-19] MEDS: Fenofibrate Nanocrystallized 145 MG TAB PO SCH (08:12)
[2018-09-19] MEDS: Glimepiride 1 MG TAB PO SCH (08:12)
[2018-09-19] MEDS: Multivitamin W/ Minerals 1 TAB PO SCH (08:13)
[2018-09-19] MEDS: Atenolol 50 MG TAB PO SCH (08:13)
[2018-09-19] MEDS: Aspirin 81 mg Enteric Coated Tablet PO SCH (08:13)
[2018-09-19] MEDS: Fluticasone Propionate Nasal Spray 16 gm Bottle NASAL SCH (08:14)
[2018-09-19] MEDS: Rivaroxaban 15 MG TAB PO SCH (08:14)
[2018-09-19 08:15] VITALS: BP 149/97
--- NOTE | 2018-09-19 14:41 | PRG ---
DATE OF SERVICE: 09/19/2018 SERVICE: Pulmonary Medicine. INTERVAL HISTORY: The patient is doing really well from a respiratory standpoint. He denies any cur rent fevers, chills, nausea, vomiting, shortness of breath. Otherwise, there is no interval change t o his condition. PHYSICAL EXAMINATION: VITAL SIGNS: Afebrile, pulse 74, blood pressure 149/97, respirations 18, saturation 100% on room air . GENERAL: The patient is awake and alert, in no apparent distress. LUNGS: Decent air entry. There is no prolonged expiratory phase or wheezing present. HEART: Normal rate, regular. ABDOMEN: Soft, nontender, nondistended. Bowel sounds are positive. MUSCULOSKELETAL: No cyanosis or clubbing. No pitting in the bilateral lower extremities. NEUROLOGIC: Grossly nonfocal. ASSESSMENT: 1. Acute hypoxic respiratory failure, resolved. 2. Acute pulmonary embolism, submassive. 3. Syncope secondary to pulmonary embolism. 4. Bilateral deep venous thromboses involving bilateral common femoral veins. 5. Non-ST elevation myocardial infarction secondary to right ventricular heart strain, now resolving . DISCUSSION AND PLAN: At this point, the patient is stable for transition out of the hospital. After he is loaded on Xarelto, the patient will need to continue the full dose medication for at least 9 m onths. After that, I am inclined to start him on low dose anticoagulation for a couple of years afte rwards to decrease his risk further of recurrence. He had a very severe, life threatening event with thromboembolic disease. In 3-6 months into the future, we will consider repeating an echocardiogram . I will have him return to clinic to see me in 3 months.
--- NOTE | 2018-09-19 23:02 | DIS ---
DATE OF ADMISSION: 09/16/2018 DATE OF DISCHARGE: 09/19/2018 DISCHARGE DISPOSITION: Home. FOLLOWUP: Follow up with primary care physician, Dr. Joao Hicks in 1 week. Follow up with Dr. Magdy pitt in 2 weeks. ALLERGIES: No known drug allergies. Patient was seen on the day of discharge. Denies any new complaints, no chest pain, shortness of chino ath, palpitations. DISCHARGE MEDICATIONS: Xarelto 15 mg twice a day for 20 days followed by 20 mg daily. All other myrna e medications were left, unchanged. Patient was advised to discontinue NSAIDs while on anticoagulati on. BRIEF HOSPITAL COURSE: Patient is a 73-year-old male with recent cervical fusion, presented to the e mergency room with shortness of breath and syncopal episode. Please refer to the history and physica l for further details. The patient was admitted to the Intensive Care Unit with diagnosis of extensive bilateral pulmonary e mbolism. He was monitored in the CCU. He was started on Lovenox in the emergency room. Echocardiog sudheer showed [id number] tricuspid regurgitation with right ventricle consistent with cor pulmon macarena. He was evaluated by critical care service, Dr. Hobson. He received TPA due to extensive pulmo nary embolism. Bilateral lower extremity Doppler was positive for bilateral lower extremity DVT. He did well post-TPA. He was on room air next day. He has been started on Xarelto. He has been clear ed by Critical Care Service for discharge. FINAL DIAGNOSES: 1. Acute hypoxic respiratory failure secondary to extensive pulmonary embolism/deep venous thrombosi s with acute cor pulmonale, status post TPA. 2. Hypertension. 3. Diabetes mellitus, type 2. 4. Hyperlipidemia. 5. Type 2 myocardial infarction (Elevated troponin secondary to demand ischemia). 6. Chronic kidney disease, stage 2. 7. Obstructive sleep apnea on CPAP. 8. Obesity with a BMI of 38. 9. Syncope secondary to pulmonary embolism. 10. Dyslipidemia. 11. Gastroesophageal reflux disease. 12. History of renal calculi. 13. Left adrenal nodule found on the CT scan of the abdomen. Primary care physician advised to foll ow. Plan of care was discussed with the patient in detail. He stated understanding. Patient understands the risk of anticoagulation not limited to life threatening bleeding.
== END 2018-09-19 10:08 | disposition home or self-care (01) | DRG 175 ==
LOC: ERS 02:07 → CCU 03:55
PROVIDERS: ADMIT Internal Medicine; ATTEND Internal Medicine
PROC: B51D1ZZ Fluoroscopy of Bilateral Lower Extremity Veins using Low Osmolar Contrast (ICD-10-PCS; principal; 2018-09-16)
DX: I26.02 Saddle embolus of pulmonary artery with acute cor pulmonale (principal); J96.01 Acute respiratory failure with hypoxia; I21.4 Non-ST elevation (NSTEMI) myocardial infarction; I13.0 Hypertensive heart and chronic kidney disease with heart failure and stage 1 through stage 4 chronic kidney disease, or unspecified chronic kidney disease; I48.91 Unspecified atrial fibrillation; E78.5 Hyperlipidemia, unspecified; E11.22 Type 2 diabetes mellitus with diabetic chronic kidney disease; N18.2 Chronic kidney disease, stage 2 (mild); I51.89 Other ill-defined heart diseases
CPT/HCPCS: 36415; 36416; 80048; 80053; 83735; 83880; 84484; 85025; 93306; 93970; 99285; J1650; J2997

== ENCOUNTER 2019-04-09 12:26 | Outpatient (CLI) | payer MEDICARE | END 2019-04-09 12:27 | disposition home or self-care (01) | LOC: ULT 12:26 | PROVIDERS: ATTEND Internal Medicine | DX: J90 Pleural effusion, not elsewhere classified (principal); I26.99 Other pulmonary embolism without acute cor pulmonale; G47.33 Obstructive sleep apnea (adult) (pediatric); I51.7 Cardiomegaly | CPT/HCPCS: 93306 ==

== ENCOUNTER 2019-04-11 20:44 | Inpatient (IN) | payer MEDICARE ==
--- NOTE | 2019-04-11 22:19 | RAD ---
EXAM: CHEST ONE VIEW HISTORY: Fever, sepsis. COMPARISON: Study obtained at [facility] on 04/11/2019. FINDINGS: An electronic monitoring device again overlies the left lung base. Cardiac silhouette is magnified by projection. Pulmonary vasculature is within normal limits. Linear atelectasis versus scarring is present at the left lung base. Degenerative changes are noted in the spine. Chest is stable from prio r exam. IMPRESSION: No acute cardiopulmonary process.
[2019-04-12 01:15] LABS: Lactic Acid 2.4 mmol/L (0.5-2.2)
[2019-04-12] MEDS ORDERED: Acetaminophen 325 MG TAB PO PRN ×2 (01:17→09:17)
[2019-04-12] MEDS ORDERED: Ondansetron ODT 4 MG TAB SL PRN (01:17)
[2019-04-12] MEDS ORDERED: Ondansetron PF 4 MG/2 ML Vial IVP PRN ×2 (01:17→09:17)
[2019-04-12] MEDS ORDERED: Dextrose 50% Abboject 50 ML SYRINGE SLOW IVP PRN (01:40)
[2019-04-12] MEDS ORDERED: Dextrose 5% in Water 1,000 ML IV PRN (01:40)
[2019-04-12] MEDS ORDERED: HumaLOG 300 UNITS/3 ML VIAL SC PRN (01:40)
[2019-04-12 02:00] VITALS: BMI 37.9
[2019-04-12] MEDS: Sodium Chloride 0.9% 1,000 ML IV SCH ×2 (02:22→16:29)
[2019-04-12] MEDS: Cefepime 1 GM in Sodium Chloride 0.9% 100 ML IVPB SCH ×2 (04:04→16:33)
[2019-04-12] MEDS ORDERED: Ondansetron ODT 4 MG TAB PO PRN (09:17)
[2019-04-12] MEDS ORDERED: Bisacodyl 10 MG SUPP PR PRN ×2 (09:17)
[2019-04-12] MEDS ORDERED: Calcium Carbonate 500 MG ChewTAB PO PRN (09:17)
[2019-04-12] MEDS ORDERED: Zolpidem Tartrate 5 MG TAB PO PRN ×2 (09:17)
[2019-04-12] MEDS ORDERED: Artificial Tears 18 DROP/0.9 ML EA EYE PRN (09:17)
[2019-04-12] MEDS ORDERED: Senokot S 8.6-50 MG TAB PO PRN ×2 (09:17)
[2019-04-12] MEDS ORDERED: Cepastat Lozenges 1 LOZ PO PRN (09:17)
[2019-04-12] MEDS ORDERED: HYDROcodone/Acetaminophen 5/325 mg Tablet PO PRN (09:17)
[2019-04-12] MEDS ORDERED: Diabetic Tussin 200 MG/10 ML UDCUP PO PRN (09:17)
[2019-04-12] MEDS ORDERED: Loratadine 10 MG TAB PO PRN (09:17)
[2019-04-12] MEDS ORDERED: Loperamide HCl 2 MG CAP PO PRN ×2 (09:17)
[2019-04-12] MEDS ORDERED: hydrALAZINE 20 MG/ML VIAL SLOW IVP PRN (09:17)
[2019-04-12] MEDS ORDERED: Sodium Chloride 0.65% Nasal 44 ML BOT EA NARE PRN (09:17)
[2019-04-12] MEDS ORDERED: Gabapentin 300 MG CAP PO PRN (09:44)
--- NOTE | 2019-04-12 11:31 | HP ---
PRIMARY CARE PHYSICIAN: [facility]. REASON FOR ADMISSION: Sepsis. HISTORY OF PRESENT ILLNESS: A 74-year-old male who was in his normal health up until yesterday. Yesterday, he was feeling constipated. He was having lower abdominal discomfort predominantly on the left side. He tried to go for bowel movement, but unsuccessful. After that, he was started working in his yard. He returned to home and he tried again to go for bowel movement, but it was unsuccessful and he was continued to have lower abdominal discomfort. At that point, he started having chills and rigor and his temperature increased to 103 at home and that is why the patient was taken to local emergency room in [place], where he was having fever at 103.2. He was relatively hypotensive. He was given IV fluid, antibiotic therapy, and subsequently, he was transferred to our emergency room for further evaluation, and subsequently, he was admitted to medical floor. Since admission, the patient does not have any fever. He denies any UTI symptoms. He denies any diarrhea, melena, or hematochezia. He denies any abdominal pain other than left lower abdominal discomfort. He denies any upper or lower respiratory symptoms. He denies any headache. He denies any skin rash. He denies any sick exposure or recent travel. PAST MEDICAL HISTORY: 1. Paroxysmal atrial arrhythmia required ablation in past. 2. History of nephrolithiasis. 3. Diabetes type 2. 4. Hypertension. 5. Dyslipidemia. 6. Obstructive sleep apnea. 7. Morbid obesity. 8. Gastroesophageal reflux disease. PAST SURGICAL HISTORY: 1. Cardiac ablation. 2. Right foot surgery. 3. Back surgery x3. 4. Left thumb surgery. 5. Cataract surgery. 6. Neck fusion. 7. Tonsillectomy. PAST PSYCHIATRIC HISTORY: Reviewed and negative. SOCIAL HISTORY: The patient lives at home with family. He drinks alcohol socially. He denies any smoking. He is a former smoker. He quit smoking more than 10 years ago. He denies any other illicit drug abuse. FAMILY HISTORY: No significant family history of cancer, but both parents had stroke. CURRENT HOME MEDICATIONS: 1. Aspirin 81 mg p.o. daily. 2. Tenormin 50 mg p.o. daily. 3. Vitamin D3 of 1000 units p.o. daily. 4. Vitamin B12 of 1000 mcg p.o. daily. 5. Dexilant 60 mg daily. 6. Tricor 145 mg p.o. daily. 7. Gabapentin 600 mg b.i.d. 8. Glimepiride 4 mg p.o. daily. 9. Losartan with hydrochlorothiazide 1 tablet p.o. daily. 10. Melatonin 10 mg p.o. at bedtime. 11. Metformin ER 500 mg p.o. b.i.d. 12. Centrum 1 tablet daily. 13. MiraLAX 17 g p.o. daily. 14. Xarelto 20 mg p.o. at bedtime. 15. Tramadol 100 mg t.i.d. p.r.n. EMERGENCY ROOM COURSE: The patient has received IV fluid and cefepime at [place] [facility]. ALLERGY: No known drug allergy. REVIEW OF SYSTEMS: CONSTITUTIONAL: Negative for weight loss or gain, ability to conduct usual activities. SKIN: Negative for rash, itching. EYES: Negative for double vision, pain. ENT/MOUTH: Negative for nose bleeding, neck stiffness, pain, tenderness. CARDIOVASCULAR: Negative for palpitations, dyspnea on exertion, orthopnea. RESPIRATORY: Negative for shortness of breath, wheezing, cough, hemoptysis, fever or night sweats. GASTROINTESTINAL: Negative for poor appetite, abdominal pain, heartburn, nausea , vomiting, constipation, or diarrhea. GENITOURINARY: Negative for urgency, frequency, dysuria, nocturia. MUSCULOSKELETAL: Negative for pain, swelling. NEUROLOGIC/PSYCHIATRIC: Negative for anxiety, depression. ALLERGY/IMMUNOLOGIC: Negative for skin rash, bleeding tendency. Please see my HPI for pertinent positives and negatives. All other review of systems reviewed and negative except as mentioned in HPI. PHYSICAL EXAMINATION: VITAL SIGNS: On arrival, blood pressure 119/69, pulse 87, respiratory rate 18, temperature 103.2, saturation 93% on room air. Weight 129.2 kg. GENERAL: The patient is currently alert, awake, in no obvious acute distress. HEENT: Head; normocephalic, atraumatic. Eyes; pupils round, reactive to light. Extraocular muscles intact. ENT; oropharynx within normal limits. Moist mucous membranes. No oral lesion. No pharyngeal erythema. No exudate. NECK: Supple. No JVD. No thyromegaly. No carotid bruit. No jugular venous distention. LUNGS: Clear to auscultation without any rhonchi or rales. CARDIAC: S1, S2. Appears regular without any murmur. No gallop. No rub. ABDOMEN: Obesity present. Bowel sounds present. Nontender. Nondistended. No organomegaly. No mass. No suprapubic tenderness. BACK: Unremarkable. No CVA tenderness. EXTREMITIES: Upper extremity, passive movement of all joints are normal. Lower extremity, no edema. Good distal pulsation. SKIN: No skin rash. HEMATOLOGICAL: No lymphadenopathy. NEUROLOGIC: Nonfocal examination. SIGNIFICANT LABORATORY DATA: EKG showing normal sinus rhythm without any acute ischemic changes. Chest x-ray based on my review, no acute cardiopulmonary process. CT of abdomen and pelvis showing no acute finding in the abdomen and pelvis. Nonobstructive bilateral renal calculi, adrenal adenoma, fatty liver, and prostate enlargement. CBC; WBC 12.8, hemoglobin 16.2, platelets 225. BMP; sodium 137, potassium 5.1, chloride 102, carbon dioxide 23, anion gap 17, BUN 32, creatinine 1.50, glucose 152, calcium 9.9. Lactic acid 3.5. LFT; AST 38, ALT 62, alkaline phosphatase 61, albumin 4.4. BNP 73.1. Troponin-I 0.010. Urinalysis normal. ASSESSMENT AND PLAN: 1. Sepsis. The patient meets sepsis criteria with leukocytosis with left shift, high-grade fever, and lactic acidosis. Source of infection is unclear. 2. Acute kidney injury. The patient will be given IV fluid, and we will repeat labs tomorrow. 3. Transaminitis, likely related with fatty liver. Underlying sepsis-induced transaminitis is also possible. 4. Lower abdominal pain. The patient has left lower quadrant discomfort, and he was constipated, and he presented with sepsis. I am suspicious for that the patient might have constipation-related ischemic injury and that caused bacteria to enter in his bloodstream and might have caused rigors and fever. Currently, the patient is on cefepime 1 g q.12 hourly. We will consult Dr. Garzon for his expert opinion. 5. Obstructive sleep apnea, on CPAP machine. The patient will use his home CPAP machine while in hospital. 6. Paroxysmal atrial arrhythmia. The patient is on Xarelto 20 mg p.o. at bedtime and will continue Tenormin 50 mg p.o. daily. 7. Gastroesophageal reflux disease. We will continue Pepcid 20 mg p.o. b.i.d. 8. Diabetes type 2. We will continue glimepiride 4 mg p.o. daily, metformin ER 500 mg b.i.d., and insulin as per sliding scale protocol. 9. Chronic low back pain. Continue gabapentin 600 mg p.o. b.i.d. 10. Dyslipidemia. Continue Tricor 145 mg p.o. daily. 11. Hypertension. Currently, the patient's blood pressure is marginal and that is why we will only continue Tenormin 50 mg p.o. daily. We will hold on losartan with hydrochlorothiazide today and then resume tomorrow. 12. Deep venous thrombosis prophylaxis not needed because the patient is already on Xarelto therapy. 13. GI prophylaxis, on Pepcid 20 mg p.o. b.i.d. 14. Code status: The patient is full code. The patient's daughter is surrogate decision maker. DISPOSITION PLAN: Based on clinical course. ID recommendation. We will follow up on culture result. Expecting the patient's stay in hospital more than 2 midnights. Plan of care discussed with the patient and family member, and answered all their questions. Job ID: [id number] MTDD
[2019-04-12] MEDS: traMADol HCl 50 MG TAB PO SCH ×2 (16:28→20:40)
[2019-04-12] MEDS: Rivaroxaban 10 MG TAB PO SCH (16:30)
[2019-04-12] MEDS: metFORMIN XR 500 MG TAB PO SCH (16:31)
[2019-04-12 17:53] LABS: Bilirubin Negative (Negative); Blood, Urine Negative (Negative); Clarity CLEAR (Clear); Glucose, Urine (Dipstick) 100 mg/dL (Negative); Leukocyte Negative (Negative); Nitrite Negative (Negative); Protein, Urine (Dipstick) Negative (Neg-Trace); Specific Gravity, Urine 1.016 (1.002-1.036); Urobilinogen 0.2 mg/dL (0.2-1.0); pH, Urine 6.5 (5.0-9.0)
[2019-04-12 17:58] LABS: Bacteria/HPF None Seen HPF (None Seen); Hyaline Casts/LPF 0-3 HYALINE CAST LPF (0-3 Hyaline); Pathc Cast-AUWi Flag 0.13 (0-2.49); RBC/HPF 0-3 HPF (0-3); Squamous Epithelial None Seen HPF (0-3); WBC/HPF None Seen HPF (0-3)
[2019-04-12 18:04] LABS: Urine Culture Reflex No No
--- NOTE | 2019-04-12 18:50 | CON ---
DATE OF CONSULTATION: 04/12/2019 REASON FOR CONSULTATION: Fever. HISTORY OF PRESENT ILLNESS: A 74-year-old, who has history of hypertension, type 2 diabetes, and recent treatment for extensive pulmonary embolism and DVT, treated at this hospital with tPA plus heparin and then switched to Xarelto with improvement. The patient also recently had the UroLift procedure for BPH management, which resulted in improvement in symptoms of urinary outflow tract obstruction. Now, he presents with what, he describes as a fairly rapid onset of discomfort in the lower abdomen associated with constipation, which eventually developed further into general malaise and temperature 103, chills, and hypotension. The patient came to the emergency room, was given IV fluids and broad-spectrum coverage admitted. Currently, he is feeling much better. He is eating lunch. Denies headaches, visual symptoms, sore throat, odynophagia, or dysphagia. No cough or sputum production. He has chronic low back pain, he is on tramadol chronically. The pain is not changed from prior experience. The lower abdominal symptoms have completely resolved and he is able to urinate. In fact, he is urinating more than previously. No joint symptoms. No neurological symptoms. PAST MEDICAL HISTORY: Atrial arrhythmia with ablation, nephrolithiasis, type 2 diabetes, hypertension, dyslipidemia, AMY, obesity, and GERD. PAST SURGICAL HISTORY: As above plus laminectomy and fusion and lower back x3, cataract surgery, neck fusion, tonsillectomy, and a recent UroLift procedure for BPH. SOCIAL HISTORY: [place]. Retired. Drinks occasionally. Former smoker, quit more than 10 years ago. FAMILY HISTORY: Noncontributory. CURRENT MEDICATIONS: 1. Tylenol. 2. [place]. 3. Ecotrin. 4. Tenormin. 5. Dulcolax. 6. Cefepime. 7. Vitamin B12. 8. Neurontin. 9. Glucagon. 10. Robitussin. 11. Insulin. 12. Imodium. 13. Melatonin. 14. Glucophage. 15. Zofran. 16. Prevnar. 17. Xarelto. PHYSICAL EXAMINATION: VITAL SIGNS: Temperature is normal, BP 120/70, pulse 77, respirations 18, and O2 saturation 95. SKIN: Normal peripheral IV access. The patient is voiding spontaneously in the urinal. No lymphadenopathy. HEENT: Normal. NECK: Supple. LUNGS: Symmetric clear breath sounds. HEART: S1 and S2. Regular rate. No S3 or S4. ABDOMEN: Soft, not distended or tender. No ascites. No bladder distention. No organomegaly. EXTREMITIES: No joint inflammatory activity. Pulses 1+ in dorsalis pedis. Moves all extremities equally. NEUROLOGIC: Cognitive function is intact. LABORATORY DATA: White cell count is 12.8, hemoglobin 16, and platelets 225 with 85% neutrophils. INR greater than 4. Creatinine 1.5, which is higher than his baseline. Glucose was 152, lactic acid 2.4, AST 38, and ALT 62. Microbiology, we have pending urine and blood cultures thus far negative. Urinalysis actually the urine culture was not submitted. Urinalysis showed essentially normal results. However, subsequent sample according to the nurse showed cloudy urine, so it is not clear to me if this absorbs the urinary tract. ASSESSMENT: Previous supraventricular tachycardia with ablation, obesity, history of nephrolithiasis, type 2 diabetes, and recent UroLift procedure, and constipation with fever and chills. DISCUSSION: Differential diagnosis includes constipation induced urinary retention with transient translocation of bacteria into blood stream with transient bacteremia as the more likely scenario. Intraabdominal inflammatory process is less likely since the patient has had a negative CT of abdomen and pelvis with contrast. The UroLift procedure seems to have a good results in terms of long-term improvement in the outflow tract obstruction, which is maintained at five years, so I do not expect that a complication from this device is associated with the patient's symptoms. Monitor blood cultures. I would submit another sample of urine for testing again to confirm the initial results. Sometimes I have seen patients with acute translocation of bacteria from transient urinary obstruction even in the face of a urinalysis without pyuria. Other areas of involvement lungs, OIL BURNER, bone and joint, lower back are less likely. Job ID: [id number]
[2019-04-12] MEDS: Melatonin 3 MG TAB PO SCH (20:40)
[2019-04-12] MEDS: Gabapentin 300 MG CAP PO SCH (20:40)
[2019-04-12] MEDS: Famotidine 20 MG TAB PO SCH (20:40)
[2019-04-12] MEDS ORDERED: Prevnar 13-Val Conj/PF 0.5 ML SYRINGE IM ONE (21:00)
[2019-04-13] MEDS: Cefepime 1 GM in Sodium Chloride 0.9% 100 ML IVPB SCH ×2 (04:11→15:36)
[2019-04-13] MEDS: Sodium Chloride 0.9% 1,000 ML IV SCH ×3 (05:56→21:22)
[2019-04-13 06:23] LABS: #Basophils 0.1 thou/uL (0.0-0.2); #Eosinphils 0.3 thou/uL (0.0-0.7); #Monocytes 0.5 thou/uL (0.11-0.59); %Lymphocytes 33.3 % (21.0-51.0); %Monocytes 8.9 % (0.0-10.0); %Neutrophils 51.8 % (42.0-75.0); Hemoglobin 14.3 g/dL (14.0-18.0); Mean Corpuscular Hemoglobin 30.5 pg (27.0-31.0); Mean Corpuscular Volume 92.5 fL (78.0-98.0); Mean Platelet Volume 8.4 fL (7.4-10.4); Platelet Count 184 thou/uL (130-400); RBC Distribution Width 13.1 % (11.5-14.5); Red Blood Cell (RBC) Count 4.69 mill/uL (4.70-6.10); White Blood Cell (WBC) Count 5.9 thou/uL (4.8-10.8)
[2019-04-13 06:44] LABS: ALT (SGPT) 36 U/L (8-55); AST (SGOT) 23 U/L (5-34); Albumin 3.8 g/dL (3.4-4.8); Alkaline Phosphatase 46 U/L (40-150); Anion Gap 13 mmol/L (10-20); BUN (Urea Nitrogen) 22 mg/dL (8.4-25.7); Bilirubin, Total 0.6 mg/dL (0.2-1.2); Calc. Creatinine Clearance 103 mL/min (70-130); Calcium 9.4 mg/dL (7.8-10.44); Carbon Dioxide 21 mmol/L (23-31); Chloride 109 mmol/L (98-107); Estimated GFR-MDRD 62; Globulin 2.6 g/dL (2.4-3.5); Glucose 150 mg/dL (83-110); Potassium 4.3 mmol/L (3.5-5.1); Protein, Total 6.4 g/dL (5.8-8.1); Sodium 139 mmol/L (136-145)
[2019-04-13] MEDS: Atenolol 50 MG TAB PO SCH (09:00)
[2019-04-13] MEDS: Famotidine 20 MG TAB PO SCH ×2 (09:00→21:17)
[2019-04-13] MEDS: metFORMIN XR 500 MG TAB PO SCH ×2 (09:01→17:03)
[2019-04-13] MEDS: Fenofibrate Nanocrystallized 145 MG TAB PO SCH (09:01)
[2019-04-13] MEDS: Cyanocobalamin (Vitamin B-12) 1,000 MCG TAB PO SCH (09:01)
[2019-04-13] MEDS: Gabapentin 300 MG CAP PO SCH ×2 (09:01→21:17)
[2019-04-13] MEDS: Saccharomyces boulardii 250 MG CAP PO SCH (09:01)
[2019-04-13] MEDS: Aspirin 81 mg Enteric Coated Tablet PO SCH (09:01)
[2019-04-13] MEDS: traMADol HCl 50 MG TAB PO SCH ×3 (09:01→21:18)
[2019-04-13] MEDS: Multivitamin W/ Minerals 1 TAB PO SCH (09:01)
[2019-04-13] MEDS: Polyethylene Glycol 3350 17 GM Packet PO SCH (09:02)
[2019-04-13] MEDS: Glimepiride 4 MG TAB PO SCH (09:02)
--- NOTE | 2019-04-13 11:09 | PDOC.PN ---
- Subjective Encounter Start Date: 04/13/19 Encounter Start Time: 10:15 -: old records requested/rev Patient seen and examined. No new complaints. No overnight events - Objective Resuscitation Status - Order Detail: 04/12/19 01:37 Resuscitation Status Routine Resuscitation Status: FULL: Full Resuscitation MAR Reviewed: Yes Vital Signs & Weight: Vital Signs (12 hours) Temp Pulse Resp BP BP Pulse Ox 04/13/19 09:00 68 119/77 04/13/19 08:27 98.5 F 68 18 119/77 93 L 04/13/19 08:00 93 L 04/13/19 04:01 97.4 F L 82 18 107/62 95 04/13/19 03:44 94 L 04/13/19 00:25 97.6 F 69 16 121/76 94 L Weight Weight 279 lb 12.8 oz I&O: 04/12/19 04/13/19 04/14/19 06:59 06:59 06:59 Intake Total 503 2425 Output Total 550 500 Balance -47 1925 Result Diagrams: 04/13/19 05:42 04/13/19 05:42 Additional Labs: Accuchecks 04/13/19 04/12/19 04/12/19 04:06 21:56 19:15 POC Glucose 147 H 172 H 261 H 04/12/19 04/12/19 16:22 11:35 POC Glucose 200 H 186 H Phys Exam - Physical Examination Constitutional: NAD HEENT: PERRLA, moist MMs, sclera anicteric Neck: no JVD, supple Respiratory: no wheezing, no rales, no rhonchi Cardiovascular: RRR, no significant murmur, no rub Gastrointestinal: soft, non-tender, no distention, positive bowel sounds Musculoskeletal: no edema, pulses present Neurological: non-focal, normal sensation, moves all 4 limbs Lymphatic: no nodes Psychiatric: normal affect, A&O x 3 Skin: no rash, normal turgor Dx/Plan (1) Sepsis Code(s): A41.9 - SEPSIS, UNSPECIFIED ORGANISM Status: Acute (2) Atrial fibrillation Code(s): I48.91 - UNSPECIFIED ATRIAL FIBRILLATION Status: Chronic (3) Diabetes type 2, controlled Code(s): E11.9 - TYPE 2 DIABETES MELLITUS WITHOUT COMPLICATIONS Status: Chronic (4) Dyslipidemia Code(s): E78.5 - HYPERLIPIDEMIA, UNSPECIFIED Status: Chronic (5) Hypertension Code(s): I10 - ESSENTIAL (PRIMARY) HYPERTENSION Status: Chronic (6) Obesity (BMI 30-39.9) Code(s): E66.9 - OBESITY, UNSPECIFIED Status: Chronic (7) AMY on CPAP Code(s): G47.33 - OBSTRUCTIVE SLEEP APNEA (ADULT) (PEDIATRIC); Z99.89 - DEPENDENCE ON OTHER ENABLING MACHINES AND DEVICES Status: Chronic - Plan cont current plan of care, plan discussed w/ family, continue antibiotics * continue cefepime today * follow culture today * medication reviewed as below * symptomatic treatment * expecting discharge tomorrow. Review of Systems - Review of Systems ENT: negative: Ear Pain, Ear Discharge, Nose Pain, Nose Discharge, Nose Congestion, Mouth Pain, Mouth Swelling, Throat Pain, Throat Swelling, Other Respiratory: negative: Cough, Dry, Shortness of Breath, Hemoptysis, SOB with Excertion, Pleuritic Pain, Sputum, Wheezing Cardiovascular: negative: chest pain, palpitations, orthopnea, paroxysmal nocturnal dyspnea, edema, light headedness, other Gastrointestinal: negative: Nausea, Vomiting, Abdominal Pain, Diarrhea, Constipation, Melena, Hematochezia, Other Genitourinary: negative: Dysuria, Frequency, Incontinence, Hematuria, Retention , Other Musculoskeletal: negative: Neck Pain, Shoulder Pain, Arm Pain, Back Pain, Hand Pain, Leg Pain, Foot Pain, Other Skin: negative: Rash, Lesions, Sean, Bruising, Other - Medications/Allergies Allergies/Adverse Reactions: Allergies Allergy/AdvReac Type Severity Reaction Status Date / Time No Known Allergies Allergy Verified 08/14/18 12:25 Medications: Current Medications Acetaminophen (Tylenol) 650 mg PO Q4H PRN PRN Reason: Headache/Fever/Mild Pain (1-3) Hydrocodone Bitart/Acetaminophen ([place] 5/325) 1 tab PO Q4H PRN PRN Reason: Moderate Pain (4-6) Artificial Tears (Tears Naturale) 2 drop EA EYE PRN PRN PRN Reason: Dry Eyes Aspirin (Ecotrin) 81 mg PO DAILY [facility] Last Admin: 04/13/19 09:01 Dose: 81 mg Atenolol (Tenormin) 50 mg PO DAILY [facility] Last Admin: 04/13/19 09:00 Dose: 50 mg Bisacodyl (Dulcolax) 10 mg NV DAILYPRN PRN PRN Reason: Constipation Bisacodyl (Dulcolax) 10 mg NV DAILYPRN PRN PRN Reason: Constipation Calcium Carbonate (Tums) 1,000 mg PO Q4H PRN PRN Reason: Heartburn or Indigestion Cholecalciferol (Vitamin D3) 1,000 units PO DAILY [facility] Last Admin: 04/13/19 09:01 Dose: 1,000 units Cyanocobalamin (Vitamin B-12) 1,000 mcg PO DAILY [facility] Last Admin: 04/13/19 09:01 Dose: 1,000 mcg Dextrose/Water (Dextrose 50%) 25 gm SLOW IVP PRN PRN PRN Reason: Hypoglycemia Famotidine (Pepcid) 20 mg PO BID [facility] Last Admin: 04/13/19 09:00 Dose: 20 mg Fenofibrate (Tricor) 145 mg PO DAILY [facility] Last Admin: 04/13/19 09:01 Dose: 145 mg Gabapentin (Neurontin) 600 mg PO BID [facility] Last Admin: 04/13/19 09:01 Dose: 600 mg Gabapentin (Neurontin) 600 mg PO DAILY PRN PRN Reason: Pain Glimepiride (Amaryl) 4 mg PO DAILY [facility] Last Admin: 04/13/19 09:02 Dose: 4 mg Glucagon (Glucagon) 1 mg IM PRN PRN PRN Reason: Hypoglycemia Guaifenesin (Robitussin Sf) 200 mg PO Q4H PRN PRN Reason: Cough Hydralazine HCl (Apresoline) 10 mg SLOW IVP Q4H PRN PRN Reason: SBP > 180 and HR < 70 Dextrose/Water (D5w) 1,000 mls @ 0 mls/hr IV .Q0M PRN PRN Reason: Hypoglycemia Cefepime HCl 1 gm/ Sodium (Chloride) 100 mls @ 200 mls/hr IVPB 0400,1600 [facility] Last Admin: 04/13/19 04:11 Dose: 100 mls Sodium Chloride (Normal Saline 0.9%) 1,000 mls @ 75 mls/hr IV .[id number] [facility] Last Admin: 04/13/19 05:56 Dose: 1,000 mls Insulin Human Lispro (Humalog) 0 units SC .MILD SLIDING SCALE PRN PRN Reason: Mild [place] Scale Iron/Minerals/Multivitamins (Theragran M) 1 tab PO DAILY [facility] Last Admin: 04/13/19 09:01 Dose: 1 tab Loperamide HCl (Imodium) 2 mg PO PRN PRN PRN Reason: Diarrhea/Loose Stools Loperamide HCl (Imodium) 2 mg PO PRN PRN PRN Reason: Diarrhea/Loose Stools Loratadine (Claritin) 10 mg PO DAILYPRN PRN PRN Reason: Sinus Symptoms Melatonin (Melatonin) 9 mg PO [facility] Last Admin: 04/12/19 20:40 Dose: 9 mg Metformin HCl (Glucophage Xr) 500 mg PO BID-[facility] Last Admin: 04/13/19 09:01 Dose: 500 mg Ondansetron HCl (Zofran Odt) 4 mg PO Q6H PRN PRN Reason: Nausea/Vomiting Ondansetron HCl (Zofran) 4 mg IVP Q6H PRN PRN Reason: Nausea/Vomiting Polyethylene Glycol (Miralax) 17 gm PO DAILY [facility] Last Admin: 04/13/19 09:02 Dose: 17 gm Rivaroxaban (Xarelto) 20 mg PO QPM-[facility] Last Admin: 04/12/19 16:30 Dose: 20 mg Saccharomyces Boulardii (Florastor) 250 mg PO DAILY [facility] Last Admin: 04/13/19 09:01 Dose: 250 mg Senna/Docusate Sodium (Senokot S) 2 tab PO BID PRN PRN Reason: Constipation Sodium Chloride ([place] Nasal [place] 0.65%) 0 ml EA NARE QIDPRN PRN PRN Reason: Nasal Congestion Throat Lozenges (Cepastat Lozenges) 1 pedro PO Q2H PRN PRN Reason: Sore Throat Tramadol HCl (Ultram) 100 mg PO TID [facility] Last Admin: 04/13/19 09:01 Dose: 100 mg Zolpidem Tartrate (Ambien) 5 mg PO HSPRN PRN PRN Reason: Insomnia Zolpidem Tartrate (Ambien) 5 mg PO HSPRN PRN PRN Reason: Insomnia
[2019-04-13] MEDS: Rivaroxaban 10 MG TAB PO SCH (17:03)
[2019-04-13] MEDS: Melatonin 3 MG TAB PO SCH (21:22)
[2019-04-14] MEDS: Cefepime 1 GM in Sodium Chloride 0.9% 100 ML IVPB SCH ×2 (03:24→14:26)
[2019-04-14] MEDS: Aspirin 81 mg Enteric Coated Tablet PO SCH (08:35)
[2019-04-14] MEDS: Saccharomyces boulardii 250 MG CAP PO SCH (08:35)
[2019-04-14] MEDS: Atenolol 50 MG TAB PO SCH (08:35)
[2019-04-14] MEDS: Glimepiride 4 MG TAB PO SCH (08:36)
[2019-04-14] MEDS: Fenofibrate Nanocrystallized 145 MG TAB PO SCH (08:36)
[2019-04-14] MEDS: Gabapentin 300 MG CAP PO SCH (08:36)
[2019-04-14] MEDS: traMADol HCl 50 MG TAB PO SCH ×2 (08:36→14:28)
[2019-04-14] MEDS: Multivitamin W/ Minerals 1 TAB PO SCH (08:36)
[2019-04-14] MEDS: metFORMIN XR 500 MG TAB PO SCH (08:36)
[2019-04-14] MEDS: Cyanocobalamin (Vitamin B-12) 1,000 MCG TAB PO SCH (08:36)
[2019-04-14] MEDS: Famotidine 20 MG TAB PO SCH (08:36)
[2019-04-14] MEDS: Polyethylene Glycol 3350 17 GM Packet PO SCH (08:37)
--- NOTE | 2019-04-14 10:45 | DIS ---
DATE OF ADMISSION: 04/12/2019 DATE OF DISCHARGE: 04/14/2019 PRIMARY CARE PHYSICIAN: [facility] Call admission. DISCHARGE DISPOSITION: Home. PRIMARY DISCHARGE DIAGNOSIS: Sepsis, unclear etiology, resolved. SECONDARY DISCHARGE DIAGNOSES: Atrial fibrillation, diabetes type 2, hypertension, dyslipidemia, obesity with BMI of 37, and obstructive sleep apnea, on CPAP. PRIMARY PROCEDURE/OPERATION: None. RADIOLOGICAL INVESTIGATION: Chest x-ray, normal. SIGNIFICANT LABORATORY DATA: CBC, BMP, and LFT, normal. Urinalysis, normal. Blood culture, urine culture, and influenza screen, negative. DISCHARGE MEDICATION: 1. Omnicef 300 mg p.o. b.i.d. for 5 days. 2. Aspirin 81 mg p.o. daily. 3. Atenolol 50 mg p.o. daily. 4. Vitamin D3 1000 units p.o. daily. 5. Vitamin B12 1000 mcg p.o. daily. 6. Dexilant 60 mg p.o. daily. 7. Tricor 145 mg p.o. daily. 8. Gabapentin 600 mg b.i.d. 9. Amaryl 4 mg p.o. daily. 10. Losartan with hydrochlorothiazide 100/12.5 one tab p.o. daily. 11. Melatonin 10 mg p.o. nightly. 12. Metformin ER 500 mg p.o. b.i.d. 13. Multivitamin one tablet daily. 14. MiraLAX 17 g p.o. daily. 15. Xarelto 20 mg p.o. nightly. 16. Tramadol 100 mg p.o. t.i.d. CONTRAINDICATION: None. CODE STATUS: Full code. INPATIENT CASE INVESTIGATOR: Dr. Garzon. TEST RESULT PENDING ON DISCHARGE: None. ALLERGIES: NO KNOWN DRUG ALLERGIES. DISCHARGE PLAN: Posthospital, the patient will follow up with primary care physician in one week. HOSPITAL COURSE: A 74-year-old male, who was admitted by me. Please see my HPI for further details. This patient was having constipation and lower abdominal pain. The patient started having rigors and chills and fever at home and he was taken to emergency room. Subsequently, he was transferred from [place] [facility] to our hospital and he was admitted for sepsis. After that fever, the patient did not have any further fever. His culture remained negative. Influenza screen remained negative. Our logical explanation was probably related with his constipation and transient translocation of bacteremia to bloodstream that made him rigors and chills. His culture remained negative though. The patient remained hemodynamically stable, while in the hospital, we treated him with cefepime. On discharge, we changed to Omnicef. The patient is afebrile while in hospital and hemodynamically stable. Rest of medication, he will continue as per previous. PHYSICAL EXAMINATION: GENERAL: I have seen and examined the patient at bedside today. VITAL SIGNS: Currently temperature 98.3, pulse 61, respiratory rate 19, saturation 95% on room air, blood pressure 119/72, and weight 279 pounds. GENERAL: The patient is currently alert and awake, in no obvious acute distress. HEENT: Head; normocephalic and atraumatic. Eyes; pupils are round and reactive to light. Extraocular muscle intact. ENT; oropharynx within normal limits. Moist mucous membranes. No oral lesion. No pharyngeal erythema. No exudate. NECK: Supple. No JVD. No thyromegaly. No carotid bruit. LUNGS: Clear to auscultation without any rhonchi or rales. CARDIAC: S1 and S2, regular without any murmur. ABDOMEN: Soft and benign. EXTREMITIES: No edema. NEUROLOGIC: Nonfocal examination. Overall, the patient is medically stable for discharge today. Job ID: [id number]
[2019-04-14 15:41] VITALS: BP 139/75; TEMP 97.3
== END 2019-04-14 15:52 | disposition home or self-care (01) | DRG 872 ==
LOC: ERS 20:44 → T4-B 21:30 → OBSVTOIN 04-12 09:34
PROVIDERS: ADMIT Hospitalist; ATTEND Hospitalist
DX: A41.9 Sepsis, unspecified organism (principal); N17.9 Acute kidney failure, unspecified; E11.9 Type 2 diabetes mellitus without complications; I10 Essential (primary) hypertension; E78.5 Hyperlipidemia, unspecified; G47.33 Obstructive sleep apnea (adult) (pediatric); E66.01 Morbid (severe) obesity due to excess calories; K21.9 Gastro-esophageal reflux disease without esophagitis; I48.91 Unspecified atrial fibrillation; K76.0 Fatty (change of) liver, not elsewhere classified; K59.00 Constipation, unspecified; M54.9 Dorsalgia, unspecified; G89.29 Other chronic pain; Z79.899 Other long term (current) drug therapy; Z79.84 Long term (current) use of oral hypoglycemic drugs; Z86.718 Personal history of other venous thrombosis and embolism; Z86.711 Personal history of pulmonary embolism; Z68.37 Body mass index [BMI] 37.0-37.9, adult; Z99.89 Dependence on other enabling machines and devices; Z79.82 Long term (current) use of aspirin
CPT/HCPCS: 36415; 36416; 71045; 80053; 81001; 83605; 85025; 90471; 90670; 93306; G0009; J0692; J3490

== ENCOUNTER 2021-11-16 08:39 | Outpatient (CLI) | payer MEDICARE | END 2021-11-16 08:40 | disposition home or self-care (01) | LOC: DTY/OP 08:39 | PROVIDERS: ATTEND Internal Medicine Gastroenterology | DX: E11.43 Type 2 diabetes mellitus with diabetic autonomic (poly)neuropathy (principal) | CPT/HCPCS: 97802 ==

== ENCOUNTER 2022-07-01 12:01 | Outpatient (CLI) | payer MEDICARE | END 2022-07-01 12:02 | disposition home or self-care (01) | LOC: RAD 12:01 | PROVIDERS: ATTEND Physician Assistant Medical | DX: R13.10 Dysphagia, unspecified (principal); K21.9 Gastro-esophageal reflux disease without esophagitis | CPT/HCPCS: 74230 ==

== ENCOUNTER 2022-11-14 12:28 | Outpatient (CLI) | payer MEDICARE | END 2022-11-14 12:29 | disposition home or self-care (01) | PROVIDERS: ATTEND Physician Assistant Medical | DX: R13.12 Dysphagia, oropharyngeal phase (principal); K21.9 Gastro-esophageal reflux disease without esophagitis | CPT/HCPCS: 74230 ==

== ENCOUNTER 2022-11-21 07:15 | Outpatient (CLI) | payer MEDICARE ==
[2022-11-21] MEDS ORDERED: Iopamidol 370 76% 100 ML VIAL ONE (09:18)
== END 2022-11-21 07:16 | disposition home or self-care (01) ==
LOC: CT 07:15
PROVIDERS: ATTEND Internal Medicine Gastroenterology
DX: R13.12 Dysphagia, oropharyngeal phase (principal); R06.6 Hiccough
CPT/HCPCS: 71260; 74160; 82565; Q9967

== ENCOUNTER 2023-11-24 07:56 | Observation (INO) | payer MEDICARE ==
[2023-11-24] MEDS ORDERED: Iopamidol-370 76% 500 ML MDV (1 ML CHARGE) ONE (12:37)
[2023-11-24] MEDS ORDERED: Acetaminophen 325 MG TAB PO PRN (14:18)
[2023-11-24] MEDS ORDERED: Ondansetron PF 4 MG/2 ML Vial IVP PRN (14:18)
[2023-11-24] MEDS: LevoFLOXacin 750 mg/D5W 750 MG in Premix 1 BAG IVPB SCH (17:26)
[2023-11-25 10:55] LABS: #Monocytes 0.4 thou/uL (0.11-0.59); #Neutrophils 2.9 thou/uL (1.40-6.50); %Basophils 0.3 % (0.0-1.0); %Lymphocytes 17.5 % (21.0-51.0); %Monocytes 9.8 % (0.0-10.0); %Neutrophils 72.1 % (42.0-75.0); Hematocrit 38.9 % (42.0-52.0); Hemoglobin 12.5 g/dL (14.0-18.0); Mean Corpuscular HGB CONC 32.1 g/dL (32.0-36.0); Mean Corpuscular Hemoglobin 28.8 pg (27.0-31.0); Mean Corpuscular Volume 89.6 fl (78.0-98.0); Mean Platelet Volume 9.9 fL (7.4-10.4); Platelet Count 203 10x3/uL (130-400); RBC Distribution Width 15.1 % (11.5-14.5); Red Blood Cell (RBC) Count 4.34 mill/uL (4.70-6.10)
[2023-11-25 11:19] LABS: Anion Gap 17 mmol/L (10-20); BUN (Urea Nitrogen) 17 mg/dL (8.4-25.7); Calc. Creatinine Clearance 0 mL/min (70-130); Carbon Dioxide 22 mmol/L (23-31); Chloride 102 mmol/L (98-107); Estimated GFR 81; Glucose 193 mg/dL (83-110); Potassium 3.6 mmol/L (3.5-5.1); Sodium 137 mmol/L (136-145)
[2023-11-25] MEDS ORDERED: hydrALAZINE 20 MG/ML VIAL SLOW IVP PRN (12:35)
[2023-11-25] MEDS ORDERED: Melatonin 3 MG TAB PO PRN (13:31)
[2023-11-25] MEDS ORDERED: traMADol HCl 50 MG TAB PO PRN (15:00)
[2023-11-25] MEDS: LevoFLOXacin 750 mg/D5W 750 MG in Premix 1 BAG IVPB SCH (15:22)
[2023-11-25] MEDS: metFORMIN XR 500 MG ER.TAB PO SCH (18:00)
[2023-11-25] MEDS: Gabapentin 300 MG CAP PO SCH (20:45)
[2023-11-26] MEDS ORDERED: Glimepiride 4 MG TAB PO SCH (07:30)
[2023-11-26] MEDS ORDERED: Multivit, Therapeutic 1 TAB PO SCH (09:00)
[2023-11-26] MEDS ORDERED: Hydrochlorothiazide 25 MG TAB PO SCH (09:00)
[2023-11-26] MEDS ORDERED: Cholecalciferol 1,000 UNITS (25 MCG) TAB PO SCH (09:00)
[2023-11-26] MEDS ORDERED: Cyanocobalamin (Vitamin B-12) 1,000 MCG TAB PO SCH (09:00)
[2023-11-26] MEDS ORDERED: Fenofibrate Nanocrystallized 145 MG TAB PO SCH (09:00)
[2023-11-26] MEDS ORDERED: Polyethylene Glycol 3350 17 GM Packet PO SCH (09:00)
[2023-11-26] MEDS ORDERED: Losartan 25 MG TAB PO SCH (09:00)
[2023-11-26] MEDS ORDERED: Atenolol 50 MG TAB PO SCH (09:00)
[2023-11-26] MEDS ORDERED: Aspirin 81 mg Enteric Coated Tablet PO SCH (09:00)
[2023-11-26 09:01] LABS: #Monocytes 0.5 thou/uL (0.11-0.59); #Neutrophils 2.5 thou/uL (1.40-6.50); %Basophils 0.5 % (0.0-1.0); %Lymphocytes 27.8 % (21.0-51.0); %Monocytes 11.1 % (0.0-10.0); %Neutrophils 59.4 % (42.0-75.0); Hematocrit 41.1 % (42.0-52.0); Hemoglobin 12.9 g/dL (14.0-18.0); Mean Corpuscular HGB CONC 31.4 g/dL (32.0-36.0); Mean Corpuscular Hemoglobin 28.4 pg (27.0-31.0); Mean Corpuscular Volume 90.3 fl (78.0-98.0); Mean Platelet Volume 10.2 fL (7.4-10.4); Platelet Count 208 10x3/uL (130-400); Red Blood Cell (RBC) Count 4.55 mill/uL (4.70-6.10); White Blood Cell (WBC) Count 4.1 10x3/uL (4.8-10.8)
[2023-11-26 09:14] LABS: Anion Gap 16 mmol/L (10-20); BUN (Urea Nitrogen) 15 mg/dL (8.4-25.7); Calc. Creatinine Clearance 0 mL/min (70-130); Calcium 9.1 mg/dL (7.8-10.44); Carbon Dioxide 25 mmol/L (23-31); Chloride 104 mmol/L (98-107); Estimated GFR 89; Glucose 142 mg/dL (83-110); Sodium 141 mmol/L (136-145)
[2023-11-26] MEDS: metFORMIN XR 500 MG ER.TAB PO SCH (09:51)
[2023-11-26] MEDS: Gabapentin 300 MG CAP PO SCH (09:54)
[2023-11-26 14:08] VITALS: BP 113/75; TEMP 98.4
[2023-11-26] MEDS: LevoFLOXacin 750 mg/D5W 750 MG in Premix 1 BAG IVPB SCH (15:09)
[2023-11-26] MEDS ORDERED: Rivaroxaban 10 MG TAB PO SCH (17:00)
== END 2023-11-26 16:33 | disposition home or self-care (01) ==
LOC: T4-A 08:07 → INTOOBSV 08:07
PROVIDERS: ADMIT Internal Medicine; ATTEND Hospitalist
DX: I48.91 Unspecified atrial fibrillation (principal); R53.1 Weakness; I10 Essential (primary) hypertension; E78.5 Hyperlipidemia, unspecified; E11.9 Type 2 diabetes mellitus without complications; G47.33 Obstructive sleep apnea (adult) (pediatric); G93.40 Encephalopathy, unspecified; J18.9 Pneumonia, unspecified organism; I82.729 Chronic embolism and thrombosis of deep veins of unspecified upper extremity; Z79.82 Long term (current) use of aspirin; Z79.899 Other long term (current) drug therapy; Z79.84 Long term (current) use of oral hypoglycemic drugs
CPT/HCPCS: 71275; 80048 ×2; 82962 ×3; 85025 ×2; 96374; 96376 ×2; 97116; G0378 ×3; G0379; 36415; 36416; J1956; Q9967